=== PATIENT | male | born 1945 | race Caucasian/White ===

== ENCOUNTER 2016-11-14 12:11 | Day surgery (SDC) | payer BC ==
--- NOTE | 2016-11-12 14:04 | HP ---
ADMISSION HISTORY AND PHYSICAL: DATE OF ADMISSION: 11/14/16 ATTENDING SURGEON: Kalpesh Guerrero MD (ARUNA Diaz, dictating). CHIEF COMPLAINT: Right inguinal hernia. HISTORY OF PRESENT ILLNESS: This is a 71-year-old male who for the past 6 to 9 months has experienced intermittent discomfort in the right groin. It was only recently about 2 to 3 weeks ago that he actually noticed a bulge and presented for evaluation. He does a moderate amount of lifting to get his 60-pound dog in and out of the car, but there was no specific antecedent injury or straining. He has had 1 episode of sharp pain which occurred last evening, but resolved spontaneously. He has never had to manually reduce the hernia, it self reduces when he is recumbent. He has not had any significant GI or complaints, though he does have some preexisting BPH and occasional urgency. He has no history of outlet obstruction. He was seen in the office by Dr. Guerrero on 11/01/16, at which time the exam confirmed the presence of a reducible nontender right inguinal hernia. Dr. Guerrero discussed with him the options for repair and methods thereof. He understands the indications, risks, benefits, and alternatives and would like to proceed as scheduled with laparoscopic repair of right inguinal hernia with mesh. He has a previously scheduled appointment with Dr. Rayo for cardiology followup on 11/13/16. PAST MEDICAL HISTORY: Aortic insufficiency, status post aortic valve and root replacement in 2010 with porcine valve (no chronic anticoagulation). He is also treated for hypertension, GERD, hyperlipidemia and anxiety. He has a history of BPH. He is followed by Dr. Blackwell. He also has a past history of nephrolithiasis and apparently has glucose intolerance, though requires no current treatment. He had an episode of what was felt to be ischemic colitis in 2014 with no recurrence. His only previous surgery is aortic valve and root replacement in 2010 (porcine). CURRENT MEDICATIONS: 1. Hydrochlorothiazide 12.5 mg once daily. 2. Metoprolol succinate extended release 25 mg one-half tablet daily. 3. Escitalopram 10 mg daily. 4. Aspirin 81 mg daily (the patient instructed to hold between now and surgery , his last dose being 11/11/16). 5. Lisinopril 20 mg daily. 6. Pravastatin 40 mg one-half tablet q.h.s. 7. Omeprazole 20 mg daily. 8. Amoxicillin 2 g prior to specific procedures for bacterial endocarditis prophylaxis. DRUG ALLERGIES: NIASPAN (the patient does not recall reaction). FAMILY HISTORY: Noncontributory for anesthesia problems, bleeding or clotting disorders. SOCIAL HISTORY: The patient is and lives with his fiancee. 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 He is fairly active in terms of exercise and walking and has good tolerance. He denies use of tobacco. He drinks on average about 2 drinks per week. He denies other drug use. REVIEW OF SYSTEMS: General: No recent constitutional symptoms or acute illnesses. He has had net weight loss of approximately 15 pounds over the past year which was intentional. HEENT: No problems reported, though he thinks that he may be developing cataracts. Cardiovascular: No chest pain or palpitations. He is bradycardic at times, but asymptomatic. Respiratory: No history of asthma, chronic cough or shortness of breath. GI: He is treated for GERD and has a history of Benjamin's esophagus. His last EGD was in 2014 and apparently stable. He believes his last colonoscopy was within approximately 5 years. No recent problems reported. : He is followed by Dr. Blackwell for BPH. He has a past history of nephrolithiasis. No other recent problems. Endocrine: No diabetes or thyroid dysfunction. He does have glucose intolerance with an apparently mildly elevated A1c in the past. He is unsure about recent measurements. Neuro/Psych: No problems reported other than anxiety. Hematological/Oncological: No history of bleeding disorders or personal history of malignancy. PHYSICAL EXAMINATION GENERAL: Well-nourished, well-developed male in no acute distress. VITAL SIGNS: Height 5.9 inches, weight 187 pounds. Blood pressure 118/78, pulse 48. HEENT: Pupils equal, round, and reactive. EOMs are intact. No conjunctival pallor. Oropharynx: Teeth in good repair. No intraoral lesions. NECK: No lymphadenopathy, thyromegaly or masses. LUNGS: Clear to auscultation. No rales or wheezes. HEART: Bradycardic, but regular. No murmur appreciated. BREASTS: Not reexamined. ABDOMEN: Soft, nontender to palpation. No palpable masses or organomegaly per Dr. Guerrero's exam. Right inguinal hernia, reducible. No hernia palpated on the left. Testes otherwise normal. RECTAL: Not done (done within the past by Dr. Blackwell). BACK: No spinous process or CVA tenderness. EXTREMITIES: No edema. NEUROLOGICAL: Grossly intact. SKIN: Warm and dry. No suspicious rashes or lesions are noted, though a complete skin exam was not performed. He does have a skin tag-like lesion on the left lateral neck which appears benign. IMPRESSION: Right inguinal hernia. PLAN: Laparoscopic repair right inguinal hernia with mesh. ARUNA SNOW CC: Chen Ambrocio MD; Nisreen Rayo MD; Dwaine Blackwell MD * [id number]/[facility] #: [id number] MTDD
[~2016-11-14 12:11] MED LIST: Dexamethasone IV* 4 MG/ML 1 ML (4 MG) IV SLOW PU ONE; Famotidine IV* 10 MG/ML 2 ML (20 mg) IV ONE
[2016-11-14] MEDS ORDERED: Dexamethasone IV* 4 MG/ML 1 ML (4 MG) ONE (12:22)
[2016-11-14] MEDS ORDERED: ceFAZolin 2 GM PREMIX(*) 2 GM/50 ML BAG IVPB ONE (12:22)
[2016-11-14] MEDS ORDERED: Famotidine IV* 10 MG/ML 2 ML (20 mg) ONE (12:22)
[2016-11-14] MEDS ORDERED: Buffered Lidocaine 0.9% SYRIN* 5 ML/SYR SYRINGE ONE (12:22)
[2016-11-14] MEDS ORDERED: Bupivacaine 0.25% EPI 200,000* 30 ML SDV ONE (14:23)
[2016-11-14] MEDS ORDERED: Succinylcholine* 20 MG/ML 10 ML VIAL ONE (14:35)
[2016-11-14] MEDS ORDERED: fentaNYL* 50 MCG/ML 2 ML VIAL (100 MCG VIAL) ONE ×3 (14:39→16:45)
[2016-11-14] MEDS ORDERED: Lidocaine 2% PF * 5 ML VIAL ONE (14:39)
[2016-11-14] MEDS ORDERED: Propofol* 10 MG/ML 20 ML BTL IV PUSH ONE (14:39)
[2016-11-14] MEDS ORDERED: Ondansetron INJ* 2 MG/ML VIAL ONE (15:10)
[2016-11-14] MEDS ORDERED: oxyCODONE/Acetamin 5/325 MG* TAB PO PRN (15:16)
[2016-11-14] MEDS ORDERED: Ketorolac INJ* 30 MG/ML 1 ML VIAL IV PRN (15:16)
[2016-11-14] MEDS ORDERED: PROCHLORPERAZINE INJ 5 MG/ML 2 ML VIAL IV PRN (15:16)
[2016-11-14] MEDS ORDERED: fentaNYL* 50 MCG/ML 2 ML VIAL (100 MCG VIAL) IV PRN (15:16)
[2016-11-14] MEDS ORDERED: HYDROcodone/ACETAMIN 5-325 MG* 1 TAB PO PRN (15:16)
[2016-11-14] MEDS ORDERED: hydrALAZINE IV* 20 MG/ML VIAL ONE (15:41)
--- NOTE | 2016-11-14 16:14 | SURGPN ---
Brief Operative Note - Surgery Procedures: Procedures Pre-OP Diagnoses: Right inguinal hernia Post-op Diagnosis: same Procedure: Laparoscopic right inguinal hernia repair with mesh Surgeon: Cesar Vinest: Abbie Ruffin: SELENE Colby EBL: minimal IVF: crystalloid Specimen: none Drains: none
[2016-11-14] MEDS ORDERED: PROCHLORPERAZINE INJ 5 MG/ML 2 ML VIAL ONE (16:39)
[2016-11-14] MEDS ORDERED: Ketorolac INJ* 30 MG/ML 1 ML VIAL ONE (16:39)
[2016-11-14] MEDS ORDERED: HYDROcodone/ACETAMIN 5-325 MG* 1 TAB ONE (16:45)
[2016-11-14 17:54] VITALS: BP 107/64
--- NOTE | 2016-11-14 23:20 | OP ---
CC: Chen Ambrocio MD; Nisreen Rayo MD * DATE OF OPERATION: 11/14/16 - [facility] DATE OF : 43 SURGEON: Kalpesh Guerrero MD MOBILE PHLEBOTOMIST: ARUNA Diaz ANESTHESIOLOGIST: Dr. Colby. ANESTHESIA: General. PRE-OP DIAGNOSIS: Right inguinal hernia. POST-OP DIAGNOSIS: Right inguinal hernia. OPERATIVE PROCEDURE: Laparoscopic right inguinal hernia repair with mesh. ESTIMATED BLOOD LOSS: Minimal. FLUIDS: Crystalloid fluid given. SPECIMENS: None. DRAINS: None. COUNTS: Lap pad count and instrument count correct at the end of the procedure. DESCRIPTION OF PROCEDURE: The patient was identified in the preoperative area and marked accordingly, brought to the operating room, placed on the operating room table in a supine position. Preoperative antibiotics were given. Sequential devices were placed on bilateral lower extremities. General anesthesia was induced. The patient's right groin and lower abdomen were clipped of hair and then prepped and draped in a standard surgical fashion. A time-out was performed. An infraumbilical incision was made. This was deepened down to the anterior fascia on the right, which was incised and the rectus pillar retracted laterally and entry to the preperitoneal plane was made. Finger dissection was then utilized and a 12- mm blunt port was then inserted. A laparoscope was inserted through this and there was no evidence of violation of peritoneum. ___ __ was used for blunt dissection to free up this preperitoneal space and two 5 mm trocars were then placed in the lower midline. Attention was then turned towards the pubic symphysis. The loose areolar tissue was cleared off at this site and Abner's ligament was identified both on the left and right. There was no evidence of a direct hernia. The epigastric vessels on the right were maintained anteriorly and dissection was then carried out into a Bogros space laterally. Next, a hernia sac was identified. This was retracted hand over hand from the inguinal canal. This proved somewhat difficult. We did cause a tear in the hernia sac on more than one occasion. The large sac was ultimately reduced in its entirety. Review of the spermatic structures showed that they were intact without injury to the vas or any significant bleeding. Hemostasis was excellent. The sac was then twisted and a 2-0 Polysorb Endoloop was then looped around this and cinched down. This was right at the site of the first tear opening in the peritoneum. Additional portion of the peritoneum was still exposed and we used a 5 mm clip carburetor mechanic to bring this together. We identified the vas as well as the vasculature. A lipoma of the cord had also been reduced gently and next a Bard medium 3D max mesh was utilized. It was placed into the preperitoneal plane and tacked to Abner's ligament on the right and also laterally utilizing, pulling the sac up into this tack. The preperitoneal plane was then allowed to collapse. Mesh remained appropriately intact without wrinkling or tension and trocars were removed. Attention was then turned towards the umbilicus. A Veress needle was inserted into the abdomen and pneumoperitoneum was allowed to escape. I did not feel we took enough out so the posterior fascia was incised and the peritoneal cavity was allowed to fully evacuate. We then reapproximated the posterior fascia with 2-0 Polysorb suture and the anterior fascia was reapproximated with an 0 Polysorb suture in a [id number] fashion. The wounds were irrigated and skin edges were reapproximated with 4-0 Monocryl subcuticular sutures. Steri- Strips and sterile dressing were applied. The patient tolerated the procedure well. [id number]/[facility] #: [id number] FRED
== END 2016-11-14 18:12 | disposition home or self-care (01) ==
LOC: OR 12:11
PROVIDERS: ATTEND Surgery
DX: K40.90 Unilateral inguinal hernia, without obstruction or gangrene, not specified as recurrent (principal); D17.6 Benign lipomatous neoplasm of spermatic cord; Z88.8 Allergy status to other drugs, medicaments and biological substances
CPT/HCPCS: C1776; C1781; J0330; J0360; J0690; J0780; J1100; J1885; J2405; J2704; J3010

== ENCOUNTER 2018-05-17 14:25 | Emergency (ER) | payer BC ==
--- OUTSIDE RECORDS SUMMARY | 2018-05-17 14:33 | XMS REPORT | Continuity of Care Document ---
:1945 External Reference #:[id number] Author Name Jyoti Vasquez Care Team Providers Name Role Phone Chen Ambrocio MD Primary Care Physician Unavailable Payers Type Date Identification Numbers Payment Provider Subscriber Policy Number: [id number] [facility] Gerhard Lew PayID: [id number] [address] [place] [address] Advance Directives Type Date Description Status Comment Other Directive 06/13/2017 Health Care Proxy Current and Verified Problems Date Description Provider Status Onset: 01/29/2017 Aneurysm of thoracic aorta Nisreen Rayo M.D. Active Onset: 01/29/2017 Heart valve replacement Nisreen Rayo M.D. Active Onset: 04/12/2017 Sinus node dysfunction Nisreen Rayo M.D. Active Onset: 04/12/2017 Paroxysmal supraventricular Nisreen Rayo M.D. Active tachycardia Onset: 09/07/2017 Diabetes mellitus Chen Ambrocio M.D. Active Onset: 05/01/2010 Hyperlipidemia Chen Ambrocio M.D. Active Onset: 05/01/2010 Gastroesophageal reflux disease Chen Ambrocio M.D. Active Onset: 07/07/2010 Aortic valve disorder Chen Ambrocio M.D. Active Onset: 09/22/2013 Benign essential hypertension Nisreen Rayo M.D. Active Onset: 09/06/2014 Essential hypertension Nisreen Rayo M.D. Active Onset: 09/06/2014 Conduction disorder of the heart Nisreen Rayo M.D. Active Onset: 01/29/2017 Congenital insufficiency of aortic Nisreen Rayo M.D. Active valve Onset: 12/05/2017 Premature beats Nisreen Rayo M.D. 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 @ [employer] Tobacco Use Start: Unknown Never Smoked Cigarettes ETOH Use Beer or Wine 1 glass 4-5 times per week Tobacco Use Start: Unknown Patient has never smoked Recreational Drug Use Denies Drug Use Smoking Status Reviewed: 05/14/18 Patient has never smoked Exercise Type/Frequency Exercises sporadically Allergies, Adverse Reactions, Alerts Date Description Reaction Status Severity Comments 10/20/2009 Niaspan reddness Active Severe Medications Medication Date Status Form Strength Qnty SIG Indications Ordering Provider Cyclobenzaprine 05/14 Hx Tablets 5mg 30tab 1 by M54.2 Yaneli HCL s mouth at Varn, N.P. - bedtime 05/28 as needed /2017 for back pain Pravastatin 10/01 Active Tablets 40mg 45tab take 06/11 Nisreen Sodium s tablet by Preri, mouth at M.D. bedtime Hydrochlorothiazi 10/09 Active Tablets 12.5mg 90tab Take One I10 Chen de s Tablet By Cotton, Mouth M.D. Every Morning Escitalopram 08/22 Active Tablets 10mg 90tab Take One Chen s Tablet By Cotton, Mouth M.D. Every Day Amoxicillin 05/18 Active Tablets 500mg 12tab 4 tablets Chen /2013 s one hour Cotton, prior to M.D. procedure s Lisinopril 05/18 Active Tablets 20mg 90tab Take One I10 Chen /2013 s Tablet By Cotton, Mouth M.D. Once Daily Omeprazole 10/[address] 20mg 90cap Take 1 Chen /2010 s Capsule Cotton, By Mouth M.D. Every Day Aspirin [address] 81mg 1 by Unknown /0000 mouth every day Calcium 1200 00/00 Active 1 by Unknown /0000 mouth every day Multi For Him Active Tablets one by Unknown /0000 mouth daily Preservision Active Capsules i tab by Unknown Areds /0000 mouth once a day Amoxicillin/Clavu 07/10 Hx Tablets 875-125mg 14tab take 1 J01.90 Zsofia lanate Potassium s tab by Talib, - mouth CAP BLOCKER 11/18 twice a day for 7 days Pravastatin 05/16 Hx Tablets 30tab 1 by Chen Sodium s mouth Cotton, - every day M.D. 10/01 Hydrocodone-Aceta 11/12 Hx Tablets 5-325mg 15tab 1 or 2 Yeni Justice minophen s tablets MD Aric - by mouth 12/08 every - hours as needed for moderatel y severe pain Metoprolol 08/22 Hx Tablets ER 25mg 45tab 1/2 by I10 Chen Succinate ER 24HR s mouth Cotton, - every day M.D. 03/08 Aspirin 08/18 Hx Tablets 325mg 1/2 by mouth Ordering - every day Provider 01/16 Tobramycin 06/29 Hx Solution 0.3% 5ml 1 drop in H10.9 each eye Varn, N.P. - every 07/06 4hours 7 days Cheratussin ac 06/29 Hx Syrup 100-10mg/ 120ml 2 H10.9 5ML teaspoons Varn, N.P. - by mouth 07/13 every hours as needed Amoxicillin/Clavu 06/27 Hx Tablets 875-125mg 20tab one Yaneli lanate Potassium s tablet by Varn, N.P. - mouth 07/07 twice daily for 10 days Benzonatate 06/24 Hx Capsules 200mg 30cap one by J06.9 s mouth Varn, N.P. - three 06/29 times daily as needed for cough Metaxalone 01/31 Hx Tablets 800mg 40tab take 1 Chen /2015 s tablet 3 Cotton, - times a M.D. 06/24 day as needed Doxycycline 09/07 Hx Capsules 100mg 14cap one [place] Hyclate /2015 s tablet Lionel, DIRECTOR OF [employer] - twice 09/15 daily for 7 days. Ciprofloxacin HCL 08/31 Hx Tablets 500mg 14tab take one 680.9 [place] s tablet Lionel, DIRECT[employer] OF [employer] - twice a 09/07 day for days Cephalexin 08/24 Hx Tablets 500mg 20tab take one 680.9 [place] s tablet Lionel, DIRECT[employer] - every 6 08/30 hours 5 days Meclizine HCL 02/15 Hx Tablets 12.5mg 40tab take one 386.11 s to two Cotton, - tablets M.D. 06/10 by mouth three times a day as needed for vertigo Cephalexin 11/23 Hx Capsules 500mg 21cap 1 by 686.8 s mouth Varn, N.P. - three 11/30 times day for 7 days Doxycycline 10/17 Hx Capsules 100mg 2caps take 2 tablets Cotton, - one time M.D. 10/19 Lisinopril 07/20 Hx Tablets 10mg 270ta Take 1 & bs 1/2 Cotton, - Tablet By M.D. 07/20 Mouth Twice A Day Pravastatin 12/15 Hx Tablets 40mg 45tab 1/2 tab Nisreen s by mouth [place], - every day M.D. 01/29 at bedtime Skelaxin 07/10 Hx Tablets 800mg 30tab 1 every 8 724.5 s hours as Varn, N.P. - needed 07/24 Lisinopril 06/19 Hx Tablets 10mg 270ta 2 po bid bs Cotton, - M.D. 05/18 Azithromycin 04/22 Hx Tablets 250mg 6tabs two tabs day one, Varn, N.P. - one daily 05/02 till Aspirin 03/25 Hx Tablets 81mg 1/2 by mouth Cotton, - once M.D. 07/09 Lisinopril 01/14 Hx Tablets 5mg 180ta Take One bs Tablet By Cotton, - Mouth M.D. 06/19 Twice Daily Lisinopril 06/22 Hx Tablets 2.5mg 90tab Take One Chen s Tablet By Cristóbal, - Mouth M.D. 01/14 Once Daily Azithromycin 05/08 Hx Tablets 250mg 6tabs two tabs 461.9 day one, Cristóbal, - one daily M.D. 05/18 till Fluticasone 05/08 Hx Suspension 50mcg/Act 16gm 1 spray J01.90 Yaneli Propionate each Varn, N.P. - nostril 07/08 daily /2015 Lisinopril 12/06 Hx Tablets 5mg 90tab 1 po qd Chen s Cristóbal, - M.D. 06/22 Tramadol HCL 11/09 Hx Tablets 50mg 40tab 1-2 723.1 s tablets Cristóbal, - every 6 M.D. 11/09 hours needed Meloxicam 11/09 Hx Tablets 7.5mg 45tab Take One 723.1 s To Two Cristóbal, - Tablets M.D. 06/05 By Mouth Once Daily Pravastatin 09/06 Hx Tablets 20mg 90tab 1 tablet Chen Sodium s once Cristóbal, - daily at M.D. 12/15 bedtime Warfarin Sodium 09/05 Hx Tablets 2mg 100ta one and bs one half Cristóbal, - pills by M.D. 06/05 mouth once daily or as directed Docusate Sodium 09/05 Hx Liquid 50mg/5ML Cristóbal, - M.D. 09/05 Colace 09/05 Hx Capsules 50mg 1 pill two times Cristóbal, - daily M.D. 06/05 Furosemide 09/05 Hx Tablets 40mg 90tab one s tablet by Cristóbal, - mouth M.D. 12/06 once a day Pravastatin 09/05 Hx Tablets 40mg 30tab 1 tablet Chen Sodium s daily at Cristóbal, - bedtime M.D. 09/06 Metoprolol 09/05 Hx Tablets 25mg 180ta take one Nisreen Tartrate bs tablet by Perri, - mouth M.D. 08/02 twice a day Klor-Con 09/01 Hx Packet 20Meq 90uni 1 by ts mouth Cotton, - once M.D. 06/05 every Acetaminophen/Hyd 09/01 Hx Tablets 5-500mg 30tab 2 tablets s by mouth Cotton, - every 6 M.D. 10/16 hours needed Lisinopril 09/01 Hx Tablets 2.5mg 90tab 1 by s mouth Cotton, - once M.D. 12/06 Furosemide 09/01 Hx Solution 40mg/4ML 1 tablet daily Cotton, - M.D. 09/05 Amiodarone HCL 09/01 Hx Tablets 200mg 60tab 1 by s mouth 2 Cotton, - times M.D. 11/09 Metoprolol 09/01 Hx Tablets ER 25mg 60tab 1 tablet s by mouth Cotton, - twice a M.D. Docusate Sodium 09/01 Hx Capsules 100mg 60cap 1 capsule s twice a Cotton, - day M.D. 09/05 Warfarin Sodium 09/01 Hx Tablets 4mg 30tab 1 daily s except 1 Cotton, - 1/2 twice M.D. 09/05 a Hydrochlorothiazi 07/07 Hx Capsules 12.5mg 30cap 1 tablet s by mouth Cotton, - once M.D. 09/01 Nasonex 10/20 Hx Suspension 50mcg/Act 2 sprays each Cotton, - nostril M.D. 09/01 Tricor 10/20 Hx Tabs 145mg 30tab Take One s Tablet By Cotton, - Mouth M.D. 09/05 Lexapro 10/20 Hx Tablets 20mg 15tab Take 1/2 I10 s Tablet By Cotton, - Mouth M.D. 08/22 Immunizations CPT Code Status Date Vaccine Lot # [id number] Given 06/13/2017 Tetanus And Diptheria (Td) For Adult Use [id number] Preservative Free 92677 Given 03/02/2017 Influenza Virus Vaccine, Quadrivalent, Split, Preservative Free [id number] Given 04/03/2016 Fluzone Vaccine 20630 Given 09/20/2014 Pneumococcal Conjugate Vaccine 13 Valent For [id number] Intramuscular Use 70114 Given 04/15/2014 Flu Vaccine Split Virus Preservative Free For [id number] Indiv 3Yr Older 45245 Given 05/18/2013 Flu Vaccine Split Virus Preservative Free For [id number] Indiv 3Yr Older Q2037 Given 03/25/2012 Fluvirin Im 3Yrs And Older [id number] 24548 Given 03/06/2011 Influenza Virus 3Yrs & Over [id number] 45521 Given 05/01/2010 Pneumonia Vaccine 76964 Given 07/15/2009 Influenza Virus Vaccine, Pandemic Formulation 58386 Given 07/15/2009 Administration Swine Flu Shot 53233 Given 10/15/2008 Zoster (Zostavax) 40684 Given 08/08/2006 Tdap - Tetanus/Diptheria/Acellular Pertussis Vital Signs Date Vital Result Comment 05/14/2018 3:57pm Height 69 inches 5'9" Weight 201.00 lb Heart Rate 59 /min BP Systolic 153 mmHg BP Diastolic 84 mmHg Body Temperature 97.0 F Pain Level 5 O2 % BldC Oximetry 97 % BMI (Body Mass Index) 29.7 kg/m2 02/04/2018 10:11am Height 69 inches 5'9" Weight 198.00 lb Heart Rate 56 /min BP Systolic Sitting 135 mmHg BP Diastolic Sitting 75 mmHg O2 % BldC Oximetry 96 % BMI (Body Mass Index) 29.2 kg/m2 12/05/2017 1:10pm Height 69 inches 5'9" Weight 194.00 lb Heart Rate 64 /min BP Systolic Sitting 130 mmHg Lue reg cuff BP Diastolic Sitting 86 mmHg Lue reg cuff BP Systolic Standing 128 mmHg Lue BP Diastolic Standing 94 mmHg Lue Respiratory Rate 16 /min BMI (Body Mass Index) 28.6 kg/m2 Ejection Fraction 55-60% 09/16/15 12/04/2017 4:15pm Height 69 inches 5'9" Weight 190.00 lb Heart Rate 72 /min BP Systolic Sitting 118 mmHg BP Diastolic Sitting 70 mmHg Respiratory Rate 18 /min Pain Level 0 BMI (Body Mass Index) 28.1 kg/m2 07/10/2017 10:12am Height 69 inches 5'9" Weight 189.00 lb Heart Rate 61 /min BP Systolic Sitting 128 mmHg BP Diastolic Sitting 78 mmHg Respiratory Rate 16 /min Body Temperature 97.9 F O2 % BldC Oximetry 97 % BMI (Body Mass Index) 27.9 kg/m2 06/13/2017 2:55pm Height 69 inches 5'9" Weight 185.00 lb Heart Rate 61 /min BP Systolic 110 mmHg BP Diastolic 60 mmHg Body Temperature 98.5 F O2 % BldC Oximetry 97 % BMI (Body Mass Index) 27.3 kg/m2 05/16/2017 2:43pm Weight 188.50 lb Heart Rate 71 /min BP Systolic 120 mmHg BP Diastolic 80 mmHg O2 % BldC Oximetry 97 % 04/12/2017 11:34am BP Systolic 141 mmHg HR 60 HM BP mon Omron Manual sit BP Diastolic 77 mmHg HR 60 HM BP mon Omron Manual sit BP Systolic Sitting 140 mmHg HR 60 HM BP Premier value Manual sit BP Diastolic Sitting 87 mmHg HR 60 HM BP Premier value Manual sit BP Systolic Standing 125 mmHg Shuttle Hand 130/88 Shuttle Hand BP Diastolic Standing 87 mmHg Shuttle Hand 130/88 Shuttle Hand 04/12/2017 10:32am Height 69 inches 5'9" Weight 192.00 lb without shoes Heart Rate 66 /min BP Systolic Sitting 110 mmHg Lue reg cuff BP Diastolic Sitting 60 mmHg Lue reg cuff Respiratory Rate 16 /min BMI (Body Mass Index) 28.4 kg/m2 Ejection Fraction 55-60% date 09/16/2015 ECHO 01/29/2017 3:49pm Height 69 inches 5'9" Weight 188.00 lb Heart Rate 72 /min BP Systolic Sitting 104 mmHg Rue reg cuff BP Diastolic Sitting 70 mmHg Rue reg cuff BP Systolic Standing 116 mmHg Rue BP Diastolic Standing 86 mmHg Rue Respiratory Rate 16 /min BMI (Body Mass Index) 27.8 kg/m2 Ejection Fraction 55-60% 09/16/15 12/06/2016 9:43am Heart Rate 64 /min BP Systolic 130 mmHg BP Diastolic 74 mmHg Respiratory Rate 16 /min Body Temperature 97.0 F 11/21/2016 9:41am Heart Rate 62 /min Respiratory Rate 16 /min Body Temperature 96.5 F 11/12/2016 10:15am Height 69 inches 5'9" Weight 187.00 lb Heart Rate 48 /min BP Systolic Sitting 118 mmHg BP Diastolic Sitting 78 mmHg Respiratory Rate 16 /min Body Temperature 97.9 F BMI (Body Mass Index) 27.6 kg/m2 11/01/2016 12:54pm Height 68.5 inches 5'8.50" Weight 187.00 lb Heart Rate 64 /min BP Systolic 116 mmHg BP Diastolic 64 mmHg Respiratory Rate 16 /min Body Temperature 96.8 F BMI (Body Mass Index) 28.0 kg/m2 11/01/2016 10:09am Height 68.5 inches 5'8.50" Weight 187.00 lb Heart Rate 56 /min BP Systolic 110 mmHg BP Diastolic 79 mmHg Respiratory Rate 15 /min Body Temperature 97.1 F Pain Level 0 BMI (Body Mass Index) 28.0 kg/m2 10/31/2016 9:08am Weight 187.00 lb Heart Rate 48 /min BP Systolic Sitting 116 mmHg BP Diastolic Sitting 72 mmHg O2 % BldC Oximetry 98 % 10/09/2016 1:53pm Weight 188.00 lb Heart Rate 69 /min BP Systolic 134 mmHg BP Diastolic 80 mmHg BP Systolic Sitting 136 mmHg BP Diastolic Sitting 70 mmHg Body Temperature 98.0 F 09/14/2016 2:26pm Height 68.50 inches 5'8.50" Weight 195.00 lb Heart Rate 51 /min BP Systolic 154 mmHg BP Diastolic 85 mmHg Respiratory Rate 16 /min Pain Level 0 BMI (Body Mass Index) 29.2 kg/m2 10/17/2015 1:22pm Height 68.50 inches 5'8.50" Weight 203.00 lb Heart Rate 58 /min BP Systolic Sitting 142 mmHg BP Diastolic Sitting 82 mmHg Respiratory Rate 15 /min Body Temperature 98.2 F O2 % BldC Oximetry 98 % BMI (Body Mass Index) 30.4 kg/m2 10/13/2015 1:44pm Height 68.50 inches 5'8.50" Weight 201.00 lb without shoes Heart Rate 66 /min BP Systolic Sitting 120 mmHg La reg cuff BP Diastolic Sitting 90 mmHg La reg cuff BP Systolic Standing 120 mmHg La reg cuff BP Diastolic Standing 82 mmHg La reg cuff Respiratory Rate 17 /min BMI (Body Mass Index) 30.1 kg/m2 08/23/2015 12:05pm Weight 198.00 lb Heart Rate 86 /min BP Systolic Sitting 134 mmHg L: 144/84, R: 140/90 BP Diastolic Sitting 80 mmHg L: 144/84, R: 140/90 Respiratory Rate 15 /min Body Temperature 98.1 F O2 % BldC Oximetry 98 % 08/17/2015 2:41pm Weight 204.00 lb Heart Rate 62 /min BP Systolic Sitting 156 mmHg BP Diastolic Sitting 92 mmHg Body Temperature 97.7 F O2 % BldC Oximetry 98 % 06/29/2015 1:30pm Height 69 inches 5'9" Weight 205.00 lb Heart Rate 54 /min BP Systolic Sitting 128 mmHg BP Diastolic Sitting 82 mmHg Respiratory Rate 15 /min Body Temperature 98.5 F O2 % BldC Oximetry 98 % BMI (Body Mass Index) 30.3 kg/m2 06/24/2015 10:43am Height 69 inches 5'9" Weight 206.00 lb Heart Rate 82 /min BP Systolic Sitting 128 mmHg BP Diastolic Sitting 84 mmHg Respiratory Rate 15 /min Body Temperature 98.4 F O2 % BldC Oximetry 98 % BMI (Body Mass Index) 30.4 kg/m2 10/18/2014 2:57pm Height 69 inches 5'9" Weight 200.00 lb w/o shoes Heart Rate 70 /min reg BP Systolic Sitting 118 mmHg Ra, reg cuff BP Diastolic Sitting 80 mmHg Ra, reg cuff BP Systolic Standing 116 mmHg Ra BP Diastolic Standing 80 mmHg Ra Respiratory Rate 16 /min BMI (Body Mass Index) 29.5 kg/m2 Ejection Fraction 65-70% 08/18/14 09/20/2014 1:41pm Height 69 inches 5'9" Weight 198.50 lb Heart Rate 64 /min BP Systolic Sitting 136 mmHg BP Diastolic Sitting 82 mmHg Body Temperature 98.1 F O2 % BldC Oximetry 95 % BMI (Body Mass Index) 29.3 kg/m2 09/06/2014 10:33am Height 69 inches 5'9" Weight 198.00 lb w/o shoes Heart Rate 70 /min reg BP Systolic Sitting 136 mmHg Ra, reg cuff BP Diastolic Sitting 80 mmHg Ra, reg cuff BP Systolic Standing 140 mmHg Ra BP Diastolic Standing 80 mmHg Ra Respiratory Rate 16 /min BMI (Body Mass Index) 29.2 kg/m2 09/02/2014 3:21pm Height 69 inches 5'9" Weight 197.00 lb Heart Rate 65 /min BP Systolic 117 mmHg BP Diastolic 74 mmHg Body Temperature 97.9 F BMI (Body Mass Index) 29.1 kg/m2 08/31/2014 3:59pm Weight 197.00 lb Heart Rate 65 /min BP Systolic Sitting 142 mmHg BP Diastolic Sitting 76 mmHg Body Temperature 97.5 F 08/24/2014 1:17pm Weight 196.25 lb Heart Rate 67 /min BP Systolic Sitting 100 mmHg BP Diastolic Sitting 71 mmHg 08/06/2014 2:05pm Weight 200.50 lb Heart Rate 59 /min BP Systolic Sitting 117 mmHg BP Diastolic Sitting 75 mmHg 02/15/2014 3:37pm Height 69.25 inches 5'9.25" Weight 202.00 lb Heart Rate 57 /min BP Systolic Sitting 130 mmHg BP Diastolic Sitting 86 mmHg Body Temperature 98.6 F BMI (Body Mass Index) 29.6 kg/m2 11/23/2013 3:12pm Weight 205.75 lb Heart Rate 64 /min BP Systolic Sitting 133 mmHg BP Diastolic Sitting 72 mmHg 09/22/2013 9:57am Height 69 inches 5'9" Weight 202.31 lb without shoes Heart Rate 50 /min BP Systolic Sitting 120 mmHg LA reg cuff BP Diastolic Sitting 82 mmHg LA reg cuff BP Systolic Standing 156 mmHg LA reg cuff BP Diastolic Standing 90 mmHg LA reg cuff BP Systolic Recheck 140 mmHg LA p sit for 5mins db BP Diastolic Recheck 100 mmHg LA p sit for 5mins db Respiratory Rate 16 /min BMI (Body Mass Index) 29.9 kg/m2 07/20/2013 1:20pm Height 69.5 inches 5'9.50" Weight 198.50 lb Heart Rate 70 /min BP Systolic Sitting 118 mmHg BP Diastolic Sitting 80 mmHg BMI (Body Mass Index) 28.9 kg/m2 05/18/2013 1:20pm Height 69.5 inches 5'9.50" Weight 196.00 lb Heart Rate 62 /min BP Systolic Sitting 140 mmHg BP Diastolic Sitting 82 mmHg BMI (Body Mass Index) 28.5 kg/m2 08/01/2012 2:43pm Height 69.5 inches 5'9.50" Weight 202.00 lb Heart Rate 60 /min BP Systolic Sitting 140 mmHg BP Diastolic Sitting 86 mmHg BMI (Body Mass Index) 29.4 kg/m2 07/10/2012 9:49am Height 69.5 inches 5'9.50" Weight 199.00 lb Heart Rate 76 /min BP Systolic Sitting 142 mmHg BP Diastolic Sitting 84 mmHg BMI (Body Mass Index) 29.0 kg/m2 04/25/2012 2:57pm Weight 207.00 lb Heart Rate 70 /min BP Systolic Sitting 140 mmHg BP Diastolic Sitting 80 mmHg 04/14/2012 3:29pm Height 69.5 inches 5'9.50" Weight 200.00 lb Heart Rate 88 /min BP Systolic Sitting 122 mmHg BP Diastolic Sitting 68 mmHg Body Temperature 98.5 F BMI (Body Mass Index) 29.1 kg/m2 03/25/2012 4:14pm Height 69.5 inches 5'9.50" Weight 202.00 lb Heart Rate 56 /min BP Systolic Sitting 162 mmHg BP Diastolic Sitting 84 mmHg BMI (Body Mass Index) 29.4 kg/m2 06/05/2011 3:43pm Height 69.5 inches 5'9.50" Weight 197.00 lb Heart Rate 72 /min BP Systolic Sitting 158 mmHg BP Diastolic Sitting 80 mmHg BMI (Body Mass Index) 28.7 kg/m2 05/08/2011 9:38am Height 68.5 inches 5'8.50" Weight 196.75 lb Heart Rate 64 /min BP Systolic Sitting 134 mmHg l BP Diastolic Sitting 70 mmHg l Body Temperature 98.9 F BMI (Body Mass Index) 29.5 kg/m2 03/06/2011 3:45pm Height 68.5 inches 5'8.50" Weight 190.00 lb Heart Rate 62 /min BP Systolic Sitting 112 mmHg BP Diastolic Sitting 60 mmHg BMI (Body Mass Index) 28.5 kg/m2 11/09/2010 12:59pm Height 68.5 inches 5'8.50" Weight 182.00 lb Heart Rate 50 /min irregular BP Systolic Sitting 100 mmHg BP Diastolic Sitting 60 mmHg BMI (Body Mass Index) 27.3 kg/m2 10/13/2010 9:01am Height 68.5 inches 5'8.50" Weight 177.00 lb Heart Rate 60 /min BP Systolic Sitting 100 mmHg BP Diastolic Sitting 62 mmHg Body Temperature 97.7 F BMI (Body Mass Index) 26.5 kg/m2 09/01/2010 2:07pm Weight 188.00 lb Heart Rate 60 /min BP Systolic 110 mmHg BP Diastolic 60 mmHg 05/01/2010 2:40pm Height 69.5 inches 5'9.50" Weight 202.50 lb Heart Rate 60 /min BP Systolic 130 mmHg BP Diastolic 80 mmHg BMI (Body Mass Index) 29.5 kg/m2 Results Test Date Facility Test Result H/L Range Note Laboratory test 02/17/2018 [facility] PSA Diagnostic 5.251 ng/ mL High 0-4.[address] [place] [address] [phone] Urine Microalbumin 01/10/2018 [facility] Ur Microalbumin < 15.0 Random 101 (mg/L) [place] [address] [phone] Urine Creatinine 134.34 mg/dL Urine Microalbumin/Creatinine TNP <31 2 Laboratory test 01/10/2018 [facility] Hemoglobin A1c 6.4 % High 4.0-5.[address] (Glyco HGB) [place] [address] [phone] Laboratory test 01/10/2018 [facility] PSA Diagnostic 5.883 High 0-4.0 4 finding 101 ng/[place] [address] [phone] Blood Urea Nitrogen BUN 27 mg/dL High 6-24 Creatinine 01/10/2018 [facility] Creatinine 0.73 mg/dL N 0.67- 1.[address] [place] [address] [phone] Egfr Non- 105.3 >60 Egfr 127.4 >60 5 Lipid Profile 06/07/2017 [facility] Triglycerides 254 mg/dL 6 (Trig/Chol/HDL) [address] [place] [address] [phone] Cholesterol 196 mg/dL 7 HDL Cholesterol 41.2 mg/dL 8 LDL Cholesterol 104 mg/dL 9 Laboratory test 06/07/2017 [facility] Hemoglobin A1c 6.5 % High 4.0-5.[address] (Glyco HGB) [place] [address] [phone] Comp Metabolic 06/07/2017 [facility] Sodium 139 N 133-[address] mmol/[place] [address] [phone] Potassium 4.5 mmol/L N 3.5-5.0 Chloride 101 mmol/L N 101-111 Co2 Carbon Dioxide 34 mmol/L High 22-32 Anion Gap 4 mmol/L N 2-11 Glucose 149 mg/dL High 70-100 Blood Urea Nitrogen 28 mg/dL High 6-24 Creatinine 0.76 mg/dL N 0.67-1.17 BUN/Creatinine Ratio 36.8 High 8-20 Calcium 9.9 mg/dL N 8.6-10.3 Total Protein 6.5 g/dL N 6.4-8.9 Albumin 4.2 g/dL N 3.2-5.2 Globulin 2.3 g/dL N 2-4 Albumin/Globulin Ratio 1.8 N 1-3 Total Bilirubin 0.50 mg/dL N 0.2-1.0 Alkaline Phosphatase 69 U/L N 34-104 Alt 22 U/L N 7-52 Ast 17 U/L N 13-39 Egfr Non- 100.8 >60 Egfr 129.7 >60 11 Lipid Profile 04/12/2017 [facility] Triglycerides 287 mg/dL N 12 (Trig/Chol/HDL) [address] [place], [place] [id number] [phone] Cholesterol 224 mg/dL N 13 HDL Cholesterol 38.3 mg/dL N 14 LDL Cholesterol 128 mg/dL N 15 Testosterone 11/13/2016 [facility] Free 7.71 N 3.28-12.2 16 Free & Total [address] Testosterone ng/[place] [address] ng/dl [phone] Testosterone 241 ng/dL N 240-950 17 Laboratory test 11/13/2016 [facility] PSA Diagnostic 3.737 N 0 -4.0 [address] ng/[place] [address] [phone] Laboratory test 08/27/2016 [facility] PSA Diagnostic 4.860 High 0-4.0 [address] ng/[place] [address] [phone] Lipid Profile 04/03/2016 [facility] Triglycerides 100 mg/dL N 20 (Trig/Chol/HDL) [address] [place], [place] [id number] [phone] Cholesterol 154 mg/dL N 21 HDL Cholesterol 44.8 mg/dL N 22 LDL Cholesterol 89 mg/dL N 23 Laboratory test 04/03/2016 [facility] LDL Cholesterol 88 mg/dL N [address] Direct [place], [place] [address] [phone] Comp Metabolic 04/03/2016 [facility] Sodium 139 mmol/L N 133- [address] [place] [address] [phone] Potassium 4.6 mmol/L N 3.5-5.0 Chloride 103 mmol/L N 101-111 Co2 Carbon Dioxide 34 mmol/L High 22-32 Anion Gap 2 mmol/L N 2-11 Glucose 124 mg/dL High 70-100 Blood Urea Nitrogen 16 mg/dL N 6-24 Creatinine 0.80 mg/dL N 0.67-1.17 BUN/Creatinine Ratio 20.0 N 8-20 Calcium 9.7 mg/dL N 8.6-10.3 Total Protein 6.4 g/dL N 6.4-8.9 Albumin 4.1 g/dL N 3.2-5.2 Globulin 2.3 g/dL N 2-4 Albumin/Globulin Ratio 1.8 N 1-3 Total Bilirubin 0.60 mg/dL N 0.2-1.0 Alkaline Phosphatase 71 U/L N 34-104 Alt 52 U/L N 7-52 Ast 28 U/L N 13-39 Egfr Non- 95.3 N >60 Egfr 122.6 N >60 25 Laboratory test 04/03/2016 [facility] PSA Diagnostic 4.412 High 0-4.000 [address] ng/[place] [address] [phone] Hemoglobin A1c (Glyco HGB) 6.2 % High Less than 6.0 27 Urinalysis Profile 04/03/2016 [facility] Urine Color Yellow N [address] [place] [address] [phone] Urine Appearance Clear N Urine Specific Blachly 1.021 N 1.010-1.030 Urine pH 5.0 N 5-9 Urine Urobilinogen Negative N Negative Urine Ketones Negative N Negative Urine Protein Negative N Negative Urine Leukocytes Negative N Negative Urine Blood Negative N Negative Urine Nitrite Negative N Negative Urine Bilirubin Negative N Negative Urine Glucose Negative N Negative CBC Auto Diff 04/03/2016 [facility] White Blood 5.2 10^3/uL N 3.5-10.[address] [place] [address] [phone] Red Blood Count 5.20 10^6/uL N 4.0-5.4 Hemoglobin 15.1 g/dL N 14.0-18.0 Hematocrit 45 % N 42-52 Mean Corpuscular Volume 87 fL N 80-94 Mean Corpuscular Hemoglobin 29 pg N 27-31 Mean Corpuscular HGB Conc 33 g/dL N 31-36 Red Cell Distribution Width 13 % N 10.5-15 Platelet Count 181 10^3/uL N 150-450 Mean Platelet Volume 9 um3 N 7.4-10.4 Abs Neutrophils 2.7 10^3/uL N 1.5-7.7 Abs Lymphocytes 1.8 10^3/uL N 1.0-4.8 Abs Monocytes 0.5 10^3/uL N 0-0.8 Abs Eosinophils 0.2 10^3/uL N 0-0.6 Abs Basophils 0 10^3/uL N 0-0.2 Abs Nucleated RBC 0 10^3/uL N Granulocyte % 52.0 % N 38-83 Lymphocyte % 34.4 % N 25-47 Monocyte % 10.0 % High 1-9 Eosinophil % 3.2 % N 0-6 Basophil % 0.4 % N 0-2 Nucleated Red Blood Cells % 0.1 N CBC Auto Diff 08/17/2015 [facility] White Blood 6.5 10^3/uL N 3.5-10.[address] [place] [address] [phone] Red Blood Count 4.81 10^6/uL N 4.0-5.4 Hemoglobin 13.8 g/dL Low 14.0-18.0 Hematocrit 41 % Low 42-52 Mean Corpuscular Volume 85 fL N 80-94 Mean Corpuscular Hemoglobin 29 pg N 27-31 Mean Corpuscular HGB Conc 34 g/dL N 31-36 Red Cell Distribution Width 13 % N 10.5-15 Platelet Count 207 10^3/uL N 150-450 Mean Platelet Volume 8 um3 N 7.4-10.4 Abs Neutrophils 3.7 10^3/uL N 1.5-7.7 Abs Lymphocytes 1.9 10^3/uL N 1.0-4.8 Abs Monocytes 0.6 10^3/uL N 0-0.8 Abs Eosinophils 0.2 10^3/uL N 0-0.6 Abs Basophils 0 10^3/uL N 0-0.2 Abs Nucleated RBC 0.01 10^3/uL N Granulocyte % 57.7 % N 38-83 Lymphocyte % 29.4 % N 25-47 Monocyte % 9.4 % High 1-9 Eosinophil % 2.9 % N 0-6 Basophil % 0.6 % N 0-2 Nucleated Red Blood Cells % 0.1 N Inr/Protime 08/17/2015 [facility] Inr 1.03 N 0.89-1.[address] [place] [address] [phone] Laboratory test 08/17/2015 [facility] Partial 32.3 seconds N 26.0-36.[address] [place] [address] PTT [phone] Lactic Acid 1.2 mmol/L N 0.5-2.0 28 Comp Metabolic Panel 08/17/2015 [facility] Sodium 137 mmol/L N 133-[address] [place] [address] [phone] Potassium 3.8 mmol/L N 3.5-5.0 Chloride 103 mmol/L N 101-111 Co2 Carbon Dioxide 28 mmol/L N 22-32 Anion Gap 6 mmol/L N 2-11 Glucose 150 mg/dL High 70-100 Blood Urea Nitrogen 15 mg/dL N 6-24 Creatinine 0.79 mg/dL N 0.67-1.17 BUN/Creatinine Ratio 19.0 N 8-20 Calcium 9.0 mg/dL N 8.6-10.3 Total Protein 6.4 g/dL N 6.4-8.9 Albumin 4.1 g/dL N 3.2-5.2 Globulin 2.3 g/dL N 2-4 Albumin/Globulin Ratio 1.8 N 1-3 Total Bilirubin 0.30 mg/dL N 0.2-1.0 Alkaline Phosphatase 70 U/L N 34-104 Alt 23 U/L N 7-52 Ast 17 U/L N 13-39 Egfr Non- 97.0 N >60 Egfr 124.7 N >60 29 Laboratory test 08/17/2015 [facility] Magnesium 2.2 mg/dL N 1.9-2.[address] [place] [address] [phone] Lipase 37 U/L N 11.0-82.0 Creatine Kinase(CK) 74 U/L N 10-223 C Reactive Protein 2.41 mg/L N < 5.00 30 Troponin-I (TnI) 0.00 ng/mL N <0.03 31 CKMB 08/17/2015 [facility] CKMB ng/mL 2.2 ng/mL N 0.6-6.[address] [place] [address] [phone] Laboratory test 08/17/2015 [facility] TSH (Thyroid Stim 0.82 N 0.34-5.[address] Horm) ?IU/[place] [address] [phone] Lipid Profile 08/17/2015 [facility] Triglycerides 430 mg/dL N 32 (Trig/Chol/HDL) [address] [place] [address] [phone] Cholesterol 152 mg/dL N 33 HDL Cholesterol 31.4 mg/dL N 34 Laboratory test 12/28/2014 [facility] Surgical SEE RESULT [address] [place] [place] [address] [phone] Laboratory test 09/24/2014 [facility] Hemoglobin A1c 5.8 % N Less 36, [address] than 6.0 [place] [address] [phone] Comp Metabolic 09/24/2014 [facility] Sodium 138 mmol/L N 133- [address] [place] [address] [phone] Potassium 4.0 mmol/L N 3.5-5.0 Chloride 105 mmol/L N 101-111 Co2 Carbon Dioxide 27 mmol/L N 22-32 Anion Gap 6 mmol/L N 2-11 Glucose 134 mg/dL High 70-100 Blood Urea Nitrogen 15 mg/dL N 6-24 Creatinine 0.75 mg/dL N 0.67-1.17 BUN/Creatinine Ratio 20.0 N 8-20 Calcium 9.2 mg/dL N 8.6-10.3 Total Protein 6.3 g/dL Low 6.4-8.9 Albumin 4.3 g/dL N 3.2-5.2 Globulin 2.0 g/dL N 2-4 Albumin/Globulin Ratio 2.2 N 1-3 Total Bilirubin 0.60 mg/dL N 0.2-1.0 Alkaline Phosphatase 71 U/L N 34-104 Alt 29 U/L N 7-52 Ast 19 U/L N 13-39 Egfr Non- 103.3 N >60 Egfr 132.8 N >60 38 Lipid Profile 09/24/2014 [facility] Triglycerides 147 mg/dL N 39 (Trig/Chol/HDL) [address] [place], [place] [id number] [phone] Cholesterol 162 mg/dL N 40 HDL Cholesterol 35.2 mg/dL N 41 LDL Cholesterol 97 mg/dL N 42 Laboratory 09/24/2014 [facility] Hepatitis C Nonreactive N Nonreactive 43 test finding [address] Antibody [place], [place] [id number] [phone] Wound 08/31/2014 [facility] Wound/Misc (SEE NOTE) 44 Culture/Sensi [address] [place] [address] Stain [phone] Stool For 08/01/2014 [facility] Stool Occult (SEE NOTE) 45 Blood [address] [facility] [place] [address] [phone] Urinalysis 08/01/2014 [facility] Urine Color Yellow N Profile [address] [place] [address] [phone] Urine Appearance Clear N Urine Specific Blach[place] 1.025 N 1.010-1.030 Urine pH 5.0 N 5-9 Urine Urobilinogen Negative N Negative Urine Ketones Negative N Negative Urine Protein Negative N Negative Urine Leukocytes Negative N Negative Urine Blood Negative N Negative Urine Nitrite Negative N Negative Urine Bilirubin Negative N Negative Urine Glucose Negative N Negative Type & Screen 08/01/2014 [facility] Patient Blood Type A Positive N 46 [address] [place], [place] [id number] [phone] Antibody Screen NEGATIVE N CBC Auto Diff 08/01/2014 [facility] White Blood 10.4 10^3/uL N 4.8-10.[address] [place] [address] [phone] Red Blood Count 5.06 10^6/uL N 4.0-5.4 Hemoglobin 15.2 g/dL N 14.0-18.0 Hematocrit 44 % N 42-52 Mean Corpuscular Volume 88 fL N 80-94 Mean Corpuscular Hemoglobin 30 pg N 27-31 Mean Corpuscular HGB Conc 34 g/dL N 31-36 Red Cell Distribution Width 13 % N 10.5-15 Platelet Count 185 10^3/uL N 150-450 Mean Platelet Volume 9 um3 N 7.4-10.4 Abs Neutrophils 7.5 10^3/uL N 1.5-7.7 Abs Lymphocytes 1.8 10^3/uL N 1.0-4.8 Abs Monocytes 1.1 10^3/uL High 0-0.8 Abs Eosinophils 0.1 10^3/uL N 0-0.6 Abs Basophils 0 10^3/uL N 0-0.2 Abs Nucleated RBC 0 10^3/uL N Granulocyte % 71.9 % N 38-83 Lymphocyte % 17.1 % Low 25-47 Monocyte % 10.1 % High 1-9 Eosinophil % 0.5 % N 0-6 Basophil % 0.4 % N 0-2 Nucleated Red Blood Cells % 0 N Inr/Protime 08/01/2014 [facility] Inr 1.10 High 0.78-1.07 47 [address] [place] [address] [phone] Laboratory test 08/01/2014 [facility] Activated 27.9 N 24.0- 36.1 finding [address] [facility] [place] [address] Thrombo Time [phone] Lactic Acid 1.7 mmol/L N 0.5-2.2 B Type Natriuretic Peptide 76 pg/mL N 48 Comp Metabolic Panel 08/01/2014 [facility] Sodium 136 mmol/L N 133-145 [address] [place] [address] [phone] Potassium 3.4 mmol/L Low 3.5-5.0 Chloride 103 mmol/L N 101-111 Co2 Carbon Dioxide 26 mmol/L N 22-32 Anion Gap 7 mmol/L N 2-11 Glucose 165 mg/dL High 70-100 Blood Urea Nitrogen 14 mg/dL N 6-24 Creatinine 0.85 mg/dL N 0.67-1.17 BUN/Creatinine Ratio 16.5 N 8-20 Calcium 9.3 mg/dL N 8.6-10.3 Total Protein 6.6 g/dL N 6.4-8.9 Albumin 4.1 g/dL N 3.2-5.2 Globulin 2.5 g/dL N 2-4 Albumin/Globulin Ratio 1.6 N 1-3 Total Bilirubin 0.70 mg/dL N 0.2-1.0 Alkaline Phosphatase 65 U/L N 34-104 Alt 30 U/L N 7-52 Ast 19 U/L N 13-39 Egfr Non- 89.4 N >60 Egfr 114.9 N >60 49 Laboratory test 08/01/2014 [facility] Lipase 10 U/L Low 11.0- 82.0 finding [address] [place] [address] [phone] Creatine Kinase 82 U/L N 10-223 CKMB 1.8 ng/mL N 0.6-6.3 Troponin I 0.01 ng/mL N <0.03 50 Lipid Panel 10/01/2012 [facility] Triglycerides 274 mg/dL High 40-200 [address] [place] [address] [phone] Cholesterol 194 mg/dL Less than 200 HDL Cholesterol 40 mg/dL 40-60 51 Cholesterol/HDL Ratio 4.9 Average High 1-4.44 LDL Cholesterol 99.2 mg/dL Less Than 100 52 CMP Panel 10/01/2012 [facility] Sodium 140 mmol/L 133-145 [address] [place] [address] [phone] Potassium 4.3 mmol/L 3.5-5.0 Chloride 103 mmol/L 101-111 Co2 Carbon Dioxide 32.0 mmol/L 22-32 Anion Gap 5.0 mmol/L 2-11 Glucose 131 mg/dL High 70-100 Blood Urea Nitrogen 23 mg/dL 6-24 Creatinine 0.80 mg/dL 0.50-1.40 BUN/Creatinine Ratio 28.8 High 8-20 Calcium 9.7 mg/dL 8.1-9.9 Total Protein 6.6 g/dL 6.2-8.1 Albumin 4.2 g/dL 3.2-5.2 Globulin 2.4 g/dL 2-4 Albumin/Globulin Ratio 1.8 1-3 Total Bilirubin 0.6 mg/dL 0.4-1.5 Alkaline Phosphatase 67 U/L 30-110 Alt 31 U/L 14-54 Ast 24 U/L 12-42 Egfr Non- 96.4 >60 Egfr 124.0 >60 53 Laboratory test 10/01/2012 [facility] Hemoglobin A1c 5.8 % Less than [address] 6.0 [place] [address] [phone] Vitamin B12 484 pg/mL 180-914 55 Surgical 12/04/2011 [facility] Surgical [address] Pathology <SEE NOTE> [place] [address] [phone] Laboratory 09/25/2011 [facility] Hemoglobin A1c 6.0 % Less 57 test finding [address] [place] [address] 6.0 [phone] Lipid Panel 09/25/2011 [facility] Triglyceride 199 mg/dL 40- [address] [place] [address] [phone] Cholesterol 180 mg/dL Less Than 200 58 High Density Lipoprotein 39 mg/dL Low 40-60 59 Cholesterol/HDL Ratio 4.62 AVERAGE 1-4.97 Low Density Lipoprotein 101 mg/dL High Less Than 100 60 CBC Auto Diff 06/21/2011 [facility] White Blood 7.3 CUMM 4.8- 10.[address] [place], [place] [id number] [phone] Red Cell Count 4.96 CUMM 4.6-6.2 Hemoglobin 14.3 g/dL 14.0-18.0 Hematocrit 42 % 42-52 Mean Corpuscular Volume 85 um3 80-94 Mean Corpuscular Hemoglob 29 pg 27-31 Mean Corpuscular HGB Cone 34 g/dL 32-36 Redcell Distribution WDTH 13 % 10.5-15 Platelet Count 242 CUMM 150-450 Mean Platelet Volume 7.9 um3 7.4-10.4 Gran % 63.5 % 38-83 Lymph % 26.0 % 25-47 Mononuclear % 8.4 % 1-9 Eosinophil % 1.7 % 0-6 Basophil % 0.4 % 0-2 Abs Lymphs 1.9 1.0-4.8 Abs Mononuclear 0.6 0-0.8 Absolute Neutrophil Count 4.6 1.5-7.7 Abs Eosinophils 0.1 0-0.6 Abs Basophils 0 0-0.2 Laboratory test 06/21/2011 [facility] Glucose 135 mg/dL High 70-[address] [place] [address] [phone] Blood Culture 06/05/2011 [facility] M [address] ---- <[place] [address] NOTE> [phone] Comp Metabolic 06/05/2011 [facility] Sodium 136 mmol/L 135- [address] [place] [address] [phone] Potassium 4.0 mmol/L 3.5-5.0 Chloride 101 mmol/L 101-111 Co2 (Carbon Dioxide) 28.0 mmol/L 22-32 Anion Gap 7.0 mmol/L 2-11 62 Glucose 133 mg/dL High 70-100 BUN 16 mg/dL 6-24 Creatinine 0.9 mg/dL 0.50-1.40 One Over Creatinine 1.11 BUN/Creatinine Ratio 17.8 8-20 Calcium 9.7 mg/dL 8.1-9.9 Total Protein 7.4 GM/DL 6.2-8.1 Albumin 4.0 GM/DL 3.2-5.2 Globulin 3.4 GM/DL 2-4 Albumin/Globulin Ratio 1.2 1-3 Bilirubin Total 0.9 mg/dL 0.4-1.5 63 Alkaline Phosphatase 88 U/L 39-117 Alt (SGPT) 29 U/L 17-63 Ast (Sgot) 22 U/L 12-42 eGFR Non- 84.4 > 60 eGFR 108.6 > 60 64 CBC Auto Diff 06/05/2011 [facility] White Blood 9.7 CUMM 4.8- 10.[address] [place] [address] [phone] Red Cell Count 4.89 CUMM 4.6-6.2 Hemoglobin 14.0 g/dL 14.0-18.0 Hematocrit 41 % Low 42-52 Mean Corpuscular Volume 84 um3 80-94 Mean Corpuscular Hemoglob 29 pg 27-31 Mean Corpuscular HGB Cone 34 g/dL 32-36 Redcell Distribution WDTH 13 % 10.5-15 Platelet Count 241 CUMM 150-450 Mean Platelet Volume 6.7 um3 Low 7.4-10.4 65 Manual Differential 06/05/2011 [facility] Polysegmented 83 % 38-[address] [place] [address] [phone] Band Neutrophil 2 % 0-8 Lymphocyte 6 % Low 25-47 Monocyte 6 % 0-13 Metamyelocyte 3 % High 0-2 Absolute Neutrophil Count 8.2 RBC Morphology NORMAL Laboratory test 06/05/2011 [facility] C Reactive 5.0 mg/dL High Less Than finding [address] Protein 0.5 [place] [address] [phone] Urinalysis 06/05/2011 [facility] Ua Color YELLOW Yellow [address] [place] [address] [phone] Appearance-Urine CLEAR Clear Specific Blachly-Ur 1.018 1.010-1.030 Esterase-Urine NEGATIVE Negative Nitrite NEGATIVE Negative [id number] NEGATIVE Negative Protein-Urine NEGATIVE Negative PH-Urine 5.5 5-9 Blood-Urine NEGATIVE Negative Ketones-Urine NEGATIVE Negative Bilirubin-Ur NEGATIVE Negative Glucose-Urine NEGATIVE Negative International Normalized 10/30/2010 [facility] Inr 1.26 High 0.82-1.[address] [place] [address] [phone] Protime 15.0 SEC High 10.2-14.8 67 Laboratory test 10/30/2010 [facility] CPK (Creatine 54 U/L 0- [address] Kinase) [place] [address] [phone] TSH 1.12 MIU/ML 0.34-5.60 Erythrocyte Sed Rate 18 MM/HR 0-40 International Normalized 10/23/2010 [facility] Inr 3.30 High 0.82-1.[address] [place] [address] [phone] Protime 41.5 SEC High 10.2-14.8 69 International Normalized 10/16/2010 [facility] Inr 1.56 High 0.82-1.17 70 Ratio [address] [place] [address] [phone] Protime 18.9 SEC High 10.2-14.8 71 Comp Metabolic Panel 10/13/2010 [facility] Sodium 139 mmol/L 135-[address] [place] [address] [phone] Potassium 4.6 mmol/L 3.5-5.0 Chloride 101 mmol/L 101-111 Co2 (Carbon Dioxide) 31.0 mmol/L 22-32 Anion Gap 7.0 mmol/L 2-11 72 Glucose 102 mg/dL High 70-100 BUN 19 mg/dL 6-24 Creatinine 0.80 mg/dL 0.50-1.40 One Over Creatinine 1.20 BUN/Creatinine Ratio 23.8 High 8-20 Calcium 9.5 mg/dL 8.1-9.9 Total Protein 6.7 GM/DL 6.2-8.1 Albumin 4.3 GM/DL 3.2-5.2 Globulin 2.4 GM/DL 2-4 Albumin/Globulin Ratio 1.8 1-3 Bilirubin Total 0.6 mg/dL 0.4-1.5 73 Alkaline Phosphatase 80 U/L 39-117 Alt (SGPT) 26 U/L 17-63 Ast (Sgot) 19 U/L 12-42 eGFR Non- 96.7 > 60 eGFR 124.4 > 60 74 Laboratory test 10/13/2010 [facility] Hemoglobin A1c 5.6 % Less [address] Than 6.0 [place] [address] [phone] International 09/29/2010 [facility] Inr 2.29 High 0.82-1.1 76 Normalized Ratio [address] 7 [place] [address] [phone] Protime 28.2 SEC High 10.2-14.8 77 Protime W/ Inr 09/21/2010 [facility] Inr 1.7 a fib 2.5-3.[address] [place] [address] [phone] Inr 2.44 High 0.82-1.17 78 Protime 30.2 SEC High 10.2-14.8 79 Protime W/ Inr 09/08/2010 [facility] Inr 2.4 Low 2.5 -3.5 aor. valve Creatinine 07/26/2010 [facility] Creatinine 0.90 mg/dL 0.50- 1.[address] [place] [address] [phone] One Over Creatinine 1.10 eGFR Non- 84.7 > 60 eGFR 108.9 > 60 80 Laboratory test 07/26/2010 [facility] BUN 15 mg/dL 6-24 finding [address] [place] [address] [phone] Protime 07/24/2010 [facility] Inr 1.14 0.82-1.17 81, [address] [place] [address] [phone] Protime 13.5 SEC 10.2-14.8 83 CBC With 07/24/2010 [facility] White Blood 4.8 CUMM 4.8-10.[address] [place] [address] [phone] Red Cell Count 4.64 CUMM 4.6-6.2 Hemoglobin 13.6 g/dL Low 14.0-18.0 Hematocrit 40 % Low 42-52 Mean Corpuscular Volume 86 um3 80-94 Mean Corpuscular Hemoglob 30 pg 27-31 Mean Corpuscular HGB Cone 34 g/dL 32-36 Redcell Distribution WDTH 12 % 10.5-15 Platelet Count 229 CUMM 150-450 Mean Platelet Volume 9.1 um3 7.4-10.4 Gran % 49.5 % 38-83 Lymph % 35.8 % 25-47 Mononuclear % 10.7 % High 1-9 Eosinophil % 3.5 % 0-6 Basophil % 0.5 % 0-2 Abs Lymphs 1.7 1.0-4.8 Abs Mononuclear 0.5 0-0.8 Absolute Neutrophil Count 2.4 1.5-7.7 Abs Eosinophils 0.2 0-0.6 Abs Basophils 0 0-0.2 Laboratory test 07/24/2010 [facility] Ferritin 303 NG/ML 24- 336 finding [address] [place] [address] [phone] Vitamin B12 511 pg/mL 180-914 Iron & Iron Binding 07/24/2010 [facility] Iron Total 104 g/dL 45-182 Capacity [address] [place] [address] [phone] Unsaturated Iron Binding 284 g/dL Total Iron Binding Capacity 388 g/dL 250-450 % Iron Saturation 27 % 15-55 Laboratory test 07/24/2010 [facility] LDH 143 U/L 95-185 finding [address] [place] [address] [phone] Laboratory test 07/24/2010 [facility] PTT (Aptt) 30.9 25.15- 38.53 finding [address] [place] [address] [phone] Basic Metabolic 07/24/2010 [facility] Sodium 138 135-[address] mmol/[place] [address] [phone] Potassium 3.9 mmol/L 3.5-5.0 Chloride 103 mmol/L 101-111 Co2 (Carbon Dioxide) 29.0 mmol/L 22-32 Anion Gap 6.0 mmol/L 2-11 84 Glucose 112 mg/dL High 70-100 BUN 23 mg/dL 6-24 Creatinine 0.90 mg/dL 0.50-1.40 One Over Creatinine 1.10 BUN/Creatinine Ratio 25.6 High 8-20 Calcium 8.8 mg/dL 8.1-9.9 eGFR Non- 84.7 > 60 eGFR 108.9 > 60 85 Comp Metabolic Panel 04/14/2010 [facility] Sodium 142 mmol/L 135-145 [address] [place] [address] [phone] Potassium 3.8 mmol/L 3.5-5.0 Chloride 105 mmol/L 101-111 Co2 (Carbon Dioxide) 31.0 mmol/L 22-32 Anion Gap 6.0 mmol/L 2-11 86 Glucose 109 mg/dL High 70-100 87 BUN 15 mg/dL 6-24 Creatinine 0.90 mg/dL 0.50-1.40 One Over Creatinine 1.10 BUN/Creatinine Ratio 16.7 8-20 Calcium 9.4 mg/dL 8.1-9.9 Total Protein 6.7 GM/DL 6.2-8.1 Albumin 4.6 GM/DL 3.2-5.2 Globulin 2.1 GM/DL 2-4 Albumin/Globulin Ratio 2.2 1-3 Bilirubin Total 1.0 mg/dL 0.4-1.5 88 Alkaline Phosphatase 57 U/L 39-117 Alt (SGPT) 30 U/L 17-63 Ast (Sgot) 25 U/L 12-42 eGFR Non- 90.0 > 60 eGFR 108.9 > 60 89 Lipid Profile 04/14/2010 [facility] Triglyceride 86 mg/dL 40- 200 (Trig/Chol/HDL) [address] [place] [address] [phone] Cholesterol 186 mg/dL Less Than 200 90 High Density Lipoprotein 45 mg/dL 40-60 91 Cholesterol/HDL Ratio 4.13 AVERAGE 1-4.97 Low Density Lipoprotein 124 mg/dL High Less Than 100 92 Laboratory 04/14/2010 [facility] Hemoglobin A1c 6.3 % High Less 93 test finding [address] 6[address]0 [place] [address] [phone] Throat-Beta 12/27/2009 [facility] Throat-Beta NF [address] [place] [address] [phone] Surgical 11/15/2009 [facility] Surgical [address] Pathology ---- <[place] [address] NOTE> [phone] Laboratory 11/15/2009 [facility] Clotest NEGATIVE test finding [address] [place] [address] [phone] 1 Serum levels of PSA measured using the [employer] DXI Hybritech immunoassay should not be interpreted as absolute evidence of the presence or absence of disease. The PSA value should be used in conjunction with other pertinent clinical diagnostic procedures. The values obtained with different assay methods or kits cannot be used interchangeably. 2 Unable to calculate due to low microalbumin 3 Therapeutic target for the treatment of diabetes mellitus patients is <7% HBA1C, and in selective patients <6.0%. Please refer to [employer] diabetic care guidelines for further information. 4 Serum levels of PSA measured using the [employer] [place] DXI Hybritech immunoassay should not be interpreted as absolute evidence of the presence or absence of disease. The PSA value should be used in conjunction with other pertinent clinical diagnostic procedures. The values obtained with different assay methods or kits cannot be used interchangeably. 5 Because ethnic data is not always readily available, this report includes an eGFR for both -Americans and non- Americans. The National Kidney Disease Education Program (NKDEP) does not endorse the use of the MDRD equation for patients that are not between the ages of 18 and 70, are , have extremes of body size, muscle mass, or nutritional status, or are non- or non-. According to the National Kidney Foundation, irrespective of diagnosis, the stage of the disease is based on the level of kidney function: Stage Description GFR(mL/min/1.73 m(2)) 1 Kidney damage with normal or decreased GFR 90 2 Kidney damage with mild decrease in GFR 60-89 3 Moderate decrease in GFR 30-59 4 Severe decrease in GFR 15-29 5 Kidney failure <15 (or dialysis) 6 Desirable: <150 Borderline High: 150-199 High: 200-499 Very High: >500 7 Desirable: <200 Borderline High: 200-239 High: >239 8 Low: <40 Desirable: 40-60 High: >60 9 Desirable: <100 Near Optimal: 100-129 Borderline High: 130-159 High: 160-189 Very High: >189 10 Therapeutic target for the treatment of diabetes mellitus patients is <7% HBA1C, and in selective patients <6.0%. Please refer to [employer] diabetic care guidelines for further information. 11 Because ethnic data is not always readily available, this report includes an eGFR for both -Americans and non- Americans. The National Kidney Disease Education Program (NKDEP) does not endorse the use of the MDRD equation for patients that are not between the ages of 18 and 70, are , have extremes of body size, muscle mass, or nutritional status, or are non- or non-. According to the National Kidney Foundation, irrespective of diagnosis, the stage of the disease is based on the level of kidney function: Stage Description GFR(mL/min/1.73 m(2)) 1 Kidney damage with normal or decreased GFR 90 2 Kidney damage with mild decrease in GFR 60-89 3 Moderate decrease in GFR 30-59 4 Severe decrease in GFR 15-29 5 Kidney failure <15 (or dialysis) 12 Desirable: <150 Borderline High: 150-199 High: 200-499 Very High: >500 13 Desirable: <200 Borderline High: 200-239 High: >239 14 Low: <40 Desirable: 40-60 High: >60 15 Desirable: <100 Near Optimal: 100-129 Borderline High: 130-159 High: 160-189 Very High: >189 16 ADDITIONAL INFORMATION Testing performed by [facility]. This test was developed and its performance characteristics determined by [facility] in a manner consistent with CLIA requirements. This test has not been cleared or approved by the U.S. Food and Drug Administration. 17 ADDITIONAL INFORMATION Testing performed by Liquid Chromatography-Tandem Mass Spectrometry (LC-MS/MS). This test was developed and its performance characteristics determined by [facility] in a manner consistent with CLIA requirements. This test has not been cleared or approved by the U.S. Food and Drug Administration. Test Performed by: [place] [address] 18 Serum levels of PSA measured using the [employer] DXI Hybritech immunoassay should not be interpreted as absolute evidence of the presence or absence of disease. The PSA value should be used in conjunction with other pertinent clinical diagnostic procedures. The values obtained with different assay methods or kits cannot be used interchangeably. 19 Serum levels of PSA measured using the [employer] [place] DXI Hybritech immunoassay should not be interpreted as absolute evidence of the presence or absence of disease. The PSA value should be used in conjunction with other pertinent clinical diagnostic procedures. The values obtained with different assay methods or kits cannot be used interchangeably. 20 Desirable <150 Borderline high 150-199 High 200-499 Very High >500 21 Desirable <200 Borderline high 200-239 High >239 22 Low <40 Desirable: 40-60 High: >60 23 Desirable: <100 mg/dL Near Optimal: 100-129 mg/dL Borderline High: 130-159 mg/dL High: 160-189 mg/dL Very High: >189 mg/dL 24 Desirable: <100 mg/dL Near Optimal: 100-129 mg/dL Borderline High: 130-159 mg/dL High: 160-189 mg/dL Very High: >189 mg/dL 25 Because ethnic data is not always readily available, this report includes an eGFR for both -Americans and non- Americans. The National Kidney Disease Education Program (NKDEP) does not endorse the use of the MDRD equation for patients that are not between the ages of 18 and 70, are , have extremes of body size, muscle mass, or nutritional status, or are non- or non-. According to the National Kidney Foundation, irrespective of diagnosis, the stage of the disease is based on the level of kidney function: Stage Description GFR(mL/min/1.73 m(2)) 1 Kidney damage with normal or decreased GFR 90 2 Kidney damage with mild decrease in GFR 60-89 3 Moderate decrease in GFR 30-59 4 Severe decrease in GFR 15-29 5 Kidney failure <15 (or dialysis) 26 Serum levels of PSA measured using the [employer] Appdra DXI Hybritech immunoassay should not be interpreted as absolute evidence of the presence or absence of disease. The PSA value should be used in conjunction with other pertinent clinical diagnostic procedures. The values obtained with different assay methods or kits cannot be used interchangeably. 27 Therapeutic target for the treatment of diabetes Mellitus patients is <7% HBA1C, and in selective patients <6.0%.Please refer to [employer]eless Diabetes Association Diabetic care guidelines for further information. 28 NVS Severe Sepsis and Septic Shock Management Bundle Measure requires all lactic acids initially measuring >2.0mmol/L be repeated. 29 Because ethnic data is not always readily available, this report includes an eGFR for both -Americans and non- Americans. The National Kidney Disease Education Program (NKDEP) does not endorse the use of the MDRD equation for patients that are not between the ages of 18 and 70, are , have extremes of body size, muscle mass, or nutritional status, or are non- or non-. According to the National Kidney Foundation, irrespective of diagnosis, the stage of the disease is based on the level of kidney function: Stage Description GFR(mL/min/1.73 m(2)) 1 Kidney damage with normal or decreased GFR 90 2 Kidney damage with mild decrease in GFR 60-89 3 Moderate decrease in GFR 30-59 4 Severe decrease in GFR 15-29 5 Kidney failure <15 (or dialysis) 30 Acute inflammation: >10.00 31 Reference Range and Interpretation: TnI (ng/mL) Interpretation Less Than 0.03 ng/mL Not supportive of diagnosis of MD 0.03 - 0.50 ng/mL Indeterminate: suggest serial studies if clinically indicated. Greater than 0.5 ng/mL Consistent with diagnosis of MD 32 Desirable <150 Borderline high 150-199 High 200-499 Very High >500 33 Desirable <200 Borderline high 200-239 High >239 34 Low <40 Desirable: 40-60 High: >60 35 SEE RESULT BELOW Name: GERHARD LEW : [address]: Louie Quinonez MD Acct: [id number] Unit: [id number] AGE: 69 Location: ENDO Re12/28/14 SEX: M Status: REG REF SPEC: [id number] RON: 12/28/141133 [facility] DR: Louie Quinonez MD REQ: [id number] RECD: 12/28/14826 STATUS: CONNIE MCLAUGHLIN DR: Chen Ambrocio MD _ ORDERED: LEVEL IV FINAL DIAGNOSIS Gastroesophageal junction, biopsy: -- Squamous and columnar mucosa with chronic inflammation and reactive epithelial change. -- Negative for intestinal metaplasia and dysplasia. CLINICAL HISTORY No additional information provided POST-OPERATIVE DIAGNOSIS Esophagus - stable Benjamin's; stomach and duodenum - normal GROSS DESCRIPTION The specimen is received in formalin labeled, GE Junction, and consists of a 0.4 x 0.3 x 0.2 cm marti-pink irregular soft tissue fragment, which is submitted entirely in one cassette. Signed (signature on file) Rochelle Yeboah MD 1415 END OF REPORT * ML=Testing performed at Main Lab DEPARTMENT OF PATHOLOGY, [address] [place], [place] [address] Elijah Mc M.D. Director [facility] # [id number] PT IS FASTING 37 Therapeutic target for the treatment of diabetes Mellitus patients is <7% HBA1C, and in selective patients <6.0%.Please refer to Stateless Diabetes Association Diabetic care guidelines for further information. 38 Because ethnic data is not always readily available, this report includes an eGFR for both -Americans and non- Americans. The National Kidney Disease Education Program (NKDEP) does not endorse the use of the MDRD equation for patients that are not between the ages of 18 and 70, are , have extremes of body size, muscle mass, or nutritional status, or are non- or non-. According to the National Kidney Foundation, irrespective of diagnosis, the stage of the disease is based on the level of kidney function: Stage Description GFR(mL/min/1.73 m(2)) 1 Kidney damage with normal or decreased GFR 90 2 Kidney damage with mild decrease in GFR 60-89 3 Moderate decrease in GFR 30-59 4 Severe decrease in GFR 15-29 5 Kidney failure <15 (or dialysis) 39 Desirable <150 Borderline high 150-199 High 200-499 Very High >500 40 Desirable <200 Borderline high 200-239 High >239 41 Low <40 Desirable: 40-60 High: >60 42 Desirable: <100 mg/dL Near Optimal: 100-129 mg/dL Borderline High: 130-159 mg/dL High: 160-189 mg/dL Very High: >189 mg/dL 43 PT IS FASTING 44 RUN DATE: 09/04/14 [facility] LAB LIVE PAGE 1 RUN TIME: [address] [facility], [place], [place] [address] Specimen Inquiry Name: GERHARD LEW Kishan : [address]: Salomón Flowers NP Acct: [id number] Unit: [id number] AGE: 68 Location: [facility] Re08/31/14 SEX: M Status: REG REF SPEC: [id number] RON: 08/31/[address] [facility] [address]: Salomón Flowers NP REQ: [id number] RECD: 08/31/14 STATUS: COMP _ SOURCE: WOUND SPDESC:ABDOMINAL ORDERED: Culture Stain QUERIES: Provider Requisition # [id number] Specimen Description CYST LOWER ABDOMEN Procedure Result Verified Site Wound/Misc Gram Stain Final 09/01/14- 0813 ML 4+ Neutrophils 3+ Epithelial Cells 4+ Gram Positive Cocci Wound/Misc Culture Final 09/04/14- 1035 ML Organism 1 PEPTOSTREPTOCOCCI SPP Quantity 3+ Organism 2 STAPHYLOCOCCUS LUGDENENSIS Quantity 1+ Anaerobic sensitivities are not routinely performed. Positive isolates will be saved for one week. Please call the Microbiology Laboratory if susceptibility testing is needed. 2. STAPHYLOCOCCUS LUGDENENSIS M.I.C. RX --------- ------ Penicillin >=0.5 R Clindamycin <=0.25 S Erythromycin <=0.25 S Gentamicin <=0.5 S Linezolid 1 S Nitrofurantoin <=16 S Oxacillin 2 S CONTINUED ON NEXT PAGE * ML=Testing performed at Main Lab DEPARTMENT OF PATHOLOGY, [address] [place] [address] Elijah Mc M.D. Director [facility] # [id number] RUN DATE: 09/04/14 [facility] LAB LIVE PAGE 2 RUN TIME: [address] [place] [address] Specimen Inquiry Patient: GERHARD LEW [id number] (Continued) Specimen: [id number] Collected: 08/31/14 Received: 08/31/14 (Continued) Procedure Result Verified Site Wound/Misc Culture Final (continued) 09/04/146 2. STAPHYLOCOCCUS LUGDENENSIS (continued) M.I.C. RX --------- ------ * Quinupristin/Dalfopristin <=0.25 S Rifampin <=0.5 S Tetracycline <=1 S Doxycycline - Deduced S * Minocycline - Deduced S Tigecycline <=0.12 S Vancomycin <=0.5 S Imipenem-Deduced S * Ampicillin/Sulbactam-Deduced S Cefazolin-Deduced S * These antibiotics are not available in the [facility] Formulary Contact the Microbiology Department for any additional antibiotic reporting. * ML - MAIN LAB ([facility]) . END OF REPORT * ML=Testing performed at Main Lab DEPARTMENT OF PATHOLOGY, [address] [place] [address] Elijah Mc M.D. Director [facility] # [id number] RUN DATE: 08/01/14 [facility] LAB LIVE PAGE 1 RUN TIME: [address] [place] [address] Specimen Inquiry Name: GERHARD LEW : [address]: Jorge Alberto Giles MD Acct: [id number] Unit: [id number] AGE: 68 Location: ED Re08/01/14 SEX: M Status: REG ER SPEC: [id number] RON: 08/01/14 [facility] [address]: Jorge Alberto Giles MD REQ: [id number] RECD: 08/01/14 STATUS: MIMI MCLAUGHLIN DR: Chen Rayo MD _ SOURCE: STOOL SPDESC: ORDERED: Hemoccult Procedure Result Verified Site Stool Occult Blood Final 08/01/14- 31 ML Stool Occult Blood Positive END OF REPORT * ML=Testing performed at Main Lab DEPARTMENT OF PATHOLOGY, [address] [place] [address] Elijah Mc M.D. Director [facility] # [id number] ABDOMINAL PAIN 47 Please note: Effective July 07, 2014, the reference value for this test has changed due to the validation and activation of a new reagent lot number. 48 >100 to <200 pg/mL: likely compensated congestive heart failure (CHF) 200 to 400 pg/mL: likely moderate CHF >400 pg/mL: likely moderate to severe CHF [place] [facility] 49 Because ethnic data is not always readily available, this report includes an eGFR for both -Americans and non- Americans. The National Kidney Disease Education Program (NKDEP) does not endorse the use of the MDRD equation for patients that are not between the ages of 18 and 70, are , have extremes of body size, muscle mass, or nutritional status, or are non- or non-. According to the National Kidney Foundation, irrespective of diagnosis, the stage of the disease is based on the level of kidney function: Stage Description GFR(mL/min/1.73 m(2)) 1 Kidney damage with normal or decreased GFR 90 2 Kidney damage with mild decrease in GFR 60-89 3 Moderate decrease in GFR 30-59 4 Severe decrease in GFR 15-29 5 Kidney failure <15 (or dialysis) 50 Reference Range and Interpretation: TnI (ng/mL) Interpretation Less Than 0.03 ng/mL Not supportive of diagnosis of MD 0.03 - 0.50 ng/mL Indeterminate: suggest serial studies if clinically indicated. Greater than 0.5 ng/mL Consistent with diagnosis of MD 51 HDL Interpretation: Undesirable: High Risk: Less than 40 MG/DL Desirable: Low Risk: Greater than 60 MG/DL 52 LDL Interpretation: Low Risk Optimal Level: LDL Less than 100 MG/DL Near or Above Optimal: LDL 100-129 MG/DL Borderline High Risk: LDL 130-159 MG/DL High Risk: LDL 160-189 MG/DL Very High Risk: LDL Greater than 189 MG/DL 53 Because ethnic data is not always readily available, this report includes an eGFR for both -Americans and non- Americans. The National Kidney Disease Education Program (NKDEP) does not endorse the use of the MDRD equation for patients that are not between the ages of 18 and 70, are , have extremes of body size, muscle mass, or nutritional status, or are non- or non-. According to the National Kidney Foundation, irrespective of diagnosis, the stage of the disease is based on the level of kidney function: Stage Description GFR(mL/min/1.73 m(2)) 1 Kidney damage with normal or decreased GFR 90 2 Kidney damage with mild decrease in GFR 60-89 3 Moderate decrease in GFR 30-59 4 Severe decrease in GFR 15-29 5 Kidney failure <15 (or dialysis) 54 Therapeutic target for the treatment of diabetes Mellitus patients is <7% HBA1C, and in selective patients <6.0%.Please refer to Stateless Diabetes Association Diabetic care guidelines for further information. 55 PT IS FASTING 56 ---- RUN DATE: 12/06/11 [facility] NMI LIVE PAGE 1 RUN TIME: 1313 Specimen Inquiry RUN USER: INTERFACE -- Name: DERIK LEWMOLLY Holley Status: REG REF Re12/04/11 Age/Sex: 66/M Unit#: [id number] Location: [address] [place] [address]. : [birth year] -- Specimen: [id number] Spec Date:12/04/11- [facility] Dr: Louie denson MD Spec Type: SURGICAL P Received:12/05/11 Copies to: Chen butler MD SPECIMEN BIOPSY GASTROESOPHAGEAL JUNCTION HISTORY POST-OP DIAGNOSIS: Esophagus - biopsy for Benjamin's esophagus; stomach a nd duodenum normal CLINICAL INFORMATION: Benjamin's GROSS DESCRIPTION The specimen is received in formalin labelled Gerhard Lew, Biopsy GE Junction, and consists of two fragments of yellow tissue each measuring 0.4 x 0.3 x 0.2 cm. Submitted entirely, one cassette. DIAGNOSIS GE junction, biopsy: A. Squamous mucosa with reactive changes. B. Cardia type mucosa with focal intestinal metaplasia. C. Negative for dysplasia. Signed Electronically by: TRAVIS BROWER 12/06/11 8319 -- -- DEPARTMENT OF PATHOLOGY, [address] [place] [address] [facility] Permit #[id number] Elijah Mc M.D. Director Travis Brower M.D. Project Manager Dir mitzy -- 57 THERAPEUTIC TARGET FOR THE TREATMENT OF DIABETES MELLITUS PATIENTS IS <7% HBA1C, AND IN SELECTIVE PATIENTS <6.0%. PLEASE REFER TO [place] DIAB[employer] ASSOC[employer]ATION DIABETIC CARE GUIDELINES FOR FURTHER INFORMATION. 58 CHOLESTEROL INTERPRETATION: Desirable: Less than 200 MG/DL Borderline-High Risk: 200-239 MG/DL High-Risk: 240 MG/DL and over 59 HDL INTERPRETATION: Undesirable: High Risk: Less than 40 MG/DL Desirable: Low Risk: Greater than 60 MG/DL 60 LDL INTERPRETATION: Low Risk Optimal Level: LDL Less than 100 MG/DL Near or Above Optimal: LDL 100-129 MG/DL Borderline High Risk: LDL 130-159 MG/DL High Risk: LDL 160-189 MG/DL Very High Risk: LDL Greater than 189 MG/DL 61 RUN DATE: 06/10/11 [facility] NMI LIVE PAGE 1 RUN TIME: 1830 Specimen Inquiry RUN USER: INTERFACE Name: GERHARD LEW Kishan Status: DEP ER Re06/05/11 Age/Sex: 65/M Unit#: [id number] Location: : 44 SPEC #: [id number] RON: 06/05/11 STATUS: MIMI REQ #: [id number] RECD: 06/05/[address]: Ritchie ELI,Jluis Lundberg SOURCE: BLOOD ENTR: 06/05/[address]: Cristóbal ELI, Chen Lewis SPDESC: BLOOD,VENO ORDERED: BLOOD CULTURE ACT WKST: BC 06/06/11 #1 Procedure Result Verified Site > AEROBIC CULTURE BOTTLE Final 06/10/111830 ML NO GROWTH AFTER 5 DAYS > ANAEROBIC CULTURE BOTTLE Final 06/10/111830 ML NO GROWTH AFTER 5 DAYS - [facility] Permit #[id number] [address] [place] [address] DEPARTMENT OF PATHOLOGY, [address] [place] [address] [facility] Permit #[id number] Elijah Mc M.D. Director Travis Brower M.D. Machine Clipper 62 Anion gap measurement may be of limited value in the presence of any alkalosis, especially in a combined acid base disorder. . 63 A metabolite of Naproxen, O-desmethylnaproxen, has been shown to interfere with the Jendrassik-Luis A method for measuring total bilirubin. Samples from patients who have taken Naproxen have shown spurious elevation in total bilirubin levels. 64 Because ethnic data is not always readily available, this report includes an eGFR for both -Americans and non- Americans. The National Kidney Disease Education Program (NKDEP) does not endorse the use of the MDRD equation for patients that are not between the ages of 18 and 70, are , have extremes of body size, muscle mass, or nutritional status, or are non- or non-. According to the National Kidney Foundation, irrespective of diagnosis, the stage of the disease is based on the level of kidney function: Stage Description GFR(mL/min/1.73 m(2)) 1 Kidney damage with normal or decreased GFR 90 2 Kidney damage with mild decrease in GFR 60-89 3 Moderate decrease in GFR 30-59 4 Severe decrease in GFR 15-29 5 Kidney failure <15 (or dialysis) 65 Neutrophilia % Lymphopenia % 66 Recommended INR for Patients on Oral Anticoagulants Prophylaxis 2.0 - 3.0 Treatment of thrombosis 2.0 - 3.0 Prevention of embolism 2.0 - 3.0 Prevention of embolism from prosthetic heart valves 2.5 - 3.5 67 DIAGNOSIS,TREATMENT,AND THERAPY MUST BE BASED ON THE INR VALUE ALONE. 68 Recommended INR for Patients on Oral Anticoagulants Prophylaxis 2.0 - 3.0 Treatment of thrombosis 2.0 - 3.0 Prevention of embolism 2.0 - 3.0 Prevention of embolism from prosthetic heart valves 2.5 - 3.5 69 DIAGNOSIS,TREATMENT,AND THERAPY MUST BE BASED ON THE INR VALUE ALONE. 70 Recommended INR for Patients on Oral Anticoagulants Prophylaxis 2.0 - 3.0 Treatment of thrombosis 2.0 - 3.0 Prevention of embolism 2.0 - 3.0 Prevention of embolism from prosthetic heart valves 2.5 - 3.5 71 DIAGNOSIS,TREATMENT,AND THERAPY MUST BE BASED ON THE INR VALUE ALONE. 72 Anion gap measurement may be of limited value in the presence of any alkalosis, especially in a combined acid base disorder. . 73 A metabolite of Naproxen, O-desmethylnaproxen, has been shown to interfere with the Jendrassik-Wild Rose method for measuring total bilirubin. Samples from patients who have taken Naproxen have shown spurious elevation in total bilirubin levels. 74 Because ethnic data is not always readily available, this report includes an eGFR for both -Americans and non- Americans. The National Kidney Disease Education Program (NKDEP) does not endorse the use of the MDRD equation for patients that are not between the ages of 18 and 70, are , have extremes of body size, muscle mass, or nutritional status, or are non- or non-. According to the National Kidney Foundation, irrespective of diagnosis, the stage of the disease is based on the level of kidney function: Stage Description GFR(mL/min/1.73 m(2)) 1 Kidney damage with normal or decreased GFR 90 2 Kidney damage with mild decrease in GFR 60-89 3 Moderate decrease in GFR 30-59 4 Severe decrease in GFR 15-29 5 Kidney failure <15 (or dialysis) 75 THERAPEUTIC TARGET FOR THE TREATMENT OF DIABETES MELLITUS PATIENTS IS <7% HBA1C, AND IN SELECTIVE PATIENTS <6.0%. PLEASE REFER TO [place] DIAB[employer]OCIATION DIABETIC CARE GUIDELINES FOR FURTHER INFORMATION. 76 Recommended INR for Patients on Oral Anticoagulants Prophylaxis 2.0 - 3.0 Treatment of thrombosis 2.0 - 3.0 Prevention of embolism 2.0 - 3.0 Prevention of embolism from prosthetic heart valves 2.5 - 3.5 77 DIAGNOSIS,TREATMENT,AND THERAPY MUST BE BASED ON THE INR VALUE ALONE. 78 Recommended INR for Patients on Oral Anticoagulants Prophylaxis 2.0 - 3.0 Treatment of thrombosis 2.0 - 3.0 Prevention of embolism 2.0 - 3.0 Prevention of embolism from prosthetic heart valves 2.5 - 3.5 79 DIAGNOSIS,TREATMENT,AND THERAPY MUST BE BASED ON THE INR VALUE ALONE. 80 Because ethnic data is not always readily available, this report includes an eGFR for both -Americans and non- Americans. The National Kidney Disease Education Program (NKDEP) does not endorse the use of the MDRD equation for patients that are not between the ages of 18 and 70, are , have extremes of body size, muscle mass, or nutritional status, or are non- or non-. According to the National Kidney Foundation, irrespective of diagnosis, the stage of the disease is based on the level of kidney function: Stage Description GFR(mL/min/1.73 m(2)) 1 Kidney damage with normal or decreased GFR 90 2 Kidney damage with mild decrease in GFR 60-89 3 Moderate decrease in GFR 30-59 4 Severe decrease in GFR 15-29 5 Kidney failure <15 (or dialysis) 81 CALL RESULTS TO [phone] 82 Recommended INR for Patients on Oral Anticoagulants Prophylaxis 2.0 - 3.0 Treatment of thrombosis 2.0 - 3.0 Prevention of embolism 2.0 - 3.0 Prevention of embolism from prosthetic heart valves 2.5 - 3.5 83 DIAGNOSIS,TREATMENT,AND THERAPY MUST BE BASED ON THE INR VALUE ALONE. 84 Anion gap measurement may be of limited value in the presence of any alkalosis, especially in a combined acid base disorder. . 85 Because ethnic data is not always readily available, this report includes an eGFR for both -Americans and non- Americans. The National Kidney Disease Education Program (NKDEP) does not endorse the use of the MDRD equation for patients that are not between the ages of 18 and 70, are , have extremes of body size, muscle mass, or nutritional status, or are non- or non-. According to the National Kidney Foundation, irrespective of diagnosis, the stage of the disease is based on the level of kidney function: Stage Description GFR(mL/min/1.73 m(2)) 1 Kidney damage with normal or decreased GFR 90 2 Kidney damage with mild decrease in GFR 60-89 3 Moderate decrease in GFR 30-59 4 Severe decrease in GFR 15-29 5 Kidney failure <15 (or dialysis) 86 Anion gap measurement may be of limited value in the presence of any alkalosis, especially in a combined acid base disorder. . 87 Note change in reference range as of 01/29/08. The change was based on recommendations from the [employer] Diabetes [employer]. 88 A metabolite of Naproxen, O-desmethylnaproxen, has been shown to interfere with the Jendrassik-Wild Rose method for measuring total bilirubin. Samples from patients who have taken Naproxen have shown spurious elevation in total bilirubin levels. 89 Because ethnic data is not always readily available, this report includes an eGFR for both -Americans and non- Americans. The National Kidney Disease Education Program (NKDEP) does not endorse the use of the MDRD equation for patients that are not between the ages of 18 and 70, are , have extremes of body size, muscle mass, or nutritional status, or are non- or non-. According to the National Kidney Foundation, irrespective of diagnosis, the stage of the disease is based on the level of kidney function: Stage Description GFR(mL/min/1.73 m(2)) 1 Kidney damage with normal or decreased GFR 90 2 Kidney damage with mild decrease in GFR 60-89 3 Moderate decrease in GFR 30-59 4 Severe decrease in GFR 15-29 5 Kidney failure <15 (or dialysis) 90 CHOLESTEROL INTERPRETATION: Desirable: Less than 200 MG/DL Borderline-High Risk: 200-239 MG/DL High-Risk: 240 MG/DL and over 91 HDL INTERPRETATION: Undesirable: High Risk: Less than 40 MG/DL Desirable: Low Risk: Greater than 60 MG/DL 92 LDL INTERPRETATION: Low Risk Optimal Level: LDL Less than 100 MG/DL Near or Above Optimal: LDL 100-129 MG/DL Borderline High Risk: LDL 130-159 MG/DL High Risk: LDL 160-189 MG/DL Very High Risk: LDL Greater than 189 MG/DL 93 THERAPEUTIC TARGET FOR THE TREATMENT OF DIABETES MELLITUS PATIENTS IS <7% HBA1C, AND IN SELECTIVE PATIENTS <6.0%. PLEASE REFER TO [place] [employer]ATION DIABETIC CARE GUIDELINES FOR FURTHER INFORMATION. 94 NEGATIVE FOR GROUP A BETA STREPTOCOCCUS 95 ---- RUN DATE: 11/17/09 [facility] NMI LIVE PAGE 1 RUN TIME: 1307 Specimen Inquiry RUN USER: INTERFACE -- Name: GERHARD LEW Status: REG REF Re11/15/09 Age/Sex: 64/M Unit#: [id number] Location: [address] [place] [address].O.B. : [birth year] -- Specimen: [id number] [facility] Spec Date: 11/15/[address]: Louie cook MD Spec Type: SURGICAL P Received: 11/16/099578 Copies to: Chen butler MD SPECIMEN BIOPSY GASTROESOPHAGEAL JUNCTION HISTORY CLINICAL INFORMATION: Follow-up for erosive esophagitis; Benjamin's GROSS DESCRIPTION The specimen is received in formalin labelled Gerhard Scanza, GE Junction Biopsy, and consists of a marti-birch, soft tissue fragment measuring 0.5 x 0.3 x 0.2 cm. Submitted entirely, one cassette. DIAGNOSIS GE junction, biopsy: A. Gastroesophageal transition zone mucosa with mild reflux esophagitis and focal goblet cell metaplasia. B. No dysplasia is identified. Signed Electronically by: ELIJAH MC MD 11/17/09 1307 -- -- DEPARTMENT OF PATHOLOGY, [address] [place] [address] [facility] Permit #[id number] Elijah Mc M.D. Director Travis Brower M.D. Project Manager Dir mitzy -- Procedures Date Code Description Status 12/05/2017 76862 Holter Monitor Review (24 hr)dr review & interp only Completed 12/05/2017 35364 EKG Tracing & Interpretation Completed 12/02/2017 36693 ECG Monitor/Recording W/Visual Superimposition Completed Scanning 07/25/2017 27591 Biopsy Skin Lesion Single Completed 02/21/2017 43858 Event Monitor/Phys Review/Interp. Completed 01/29/2017 14360 EKG Tracing & Interpretation Completed 11/14/2016 90437 Laparoscopy, Surgical Repair Initial Inguinal Hernia Completed 11/14/2016 45479 Laparoscopy, Surgical Repair Initial Inguinal Hernia Completed 10/13/2015 98666 EKG Tracing & Interpretation Completed 09/16/2015 89398 ECHO Transthoracic, Real-Time 2D With Doppler And Completed Color Flow 08/18/2015 85130 Treadmill Interp/Report Only Completed 08/18/2015 73632 Stress Test Supervsn W/Out I/R Completed 08/17/2015 70945 EKG Tracing & Interpretation Completed 10/15/2014 91559 ECHO Stress Test Incl Perf Contiuous ekg Monitoring Completed W/Phys Superv 09/06/2014 76941 EKG Tracing & Interpretation Completed 08/31/2014 06349 I&D Of Abscess Complicated Completed 08/18/2014 94860 ECHO Transthoracic, Real-Time 2D With Doppler And Completed Color Flow 08/11/2014 66120 Holter Monitoring 24 HR New Completed 08/02/2014 16165 EKG, Interpretation Only Completed 12/10/2013 [id number] Diabetic Retinal Eye Exam Completed 11/10/2013 27006501 Colonoscopy Completed 08/25/2013 80778 ECHO Transthoracic, Real-Time 2D With Doppler And Completed Color Flow 12/02/2012 31755 EKG Tracing & Interpretation Completed 10/20/2012 07510 ECHO Transthoracic, Real-Time 2D With Doppler And Completed Color Flow 03/26/2012 [id number] EKG Tracing & Interpretation Completed 03/25/2012 [id number] EKG Tracing & Interpretation Completed 05/16/2010 [id number] EKG Tracing & Interpretation Completed 10/15/2008 [id number] EKG Tracing & Interpretation Completed Encounters Type Date Location Provider Dx Diagnosis Office Visit 02/04/2018 [facility] Internal Chen Ambrocio, E11.9 Type 2 diabetes 10:00a Igor Salas M.D. 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 Services Of [facility] Haja Kaur Office Visit 07/25/2017 10:10a [facility] Dermatology Martin Ahumada L91.8 Other hypertrophic MD disorders of the skin L98.9 Disorder of the skin and subcutaneous tissue, unspecified D48.5 Neoplasm of uncertain behavior of skin Office Visit 07/10/2017 10:20a [facility] Internal Jenn Mayers, J01.90 Acute sinusitis, Medicine - CAP BLOCKER unspecified [address] R05 Cough Office Visit 06/13/2017 2:40p [facility] Internal Chen Z00.00 Encntr for Igor - Haja Ambrocio general adult [place] medical exam w/o abnormal findings E11.9 Type 2 diabetes mellitus without complications R42 Dizziness and giddiness L98.9 Disorder of the skin and subcutaneous tissue, unspecified Z23 Encounter for immunization Office Visit 05/16/2017 [facility] Internal Chen E78.2 Mixed hyperlipidemia 2:20p Igor Ambrocio M.D. 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 I71.2 Thoracic aortic aneurysm, without rupture I10 Essential (primary) hypertension R00.2 Palpitations E78.2 Mixed hyperlipidemia Office Visit 11/01/2016 Orthopedic Emir Robb, Q66.7 Congenital pes 10:00a Services Of Haja hsieh C.MErikaAErika Office Visit 11/01/2016 Surgical Kalpesh Guerrero, K40.90 Unil inguinal 1:00p Associates Of , ANGELA hernia, w/o obst Shuttle Hand or gangr, not spcf as recur Office Visit 10/31/2016 [facility] Internal Salomón Flowers NP R22.9 Localized 9:20a Medicine - swelling, mass and [place] lump, unspecified Office Visit 10/09/2016 [facility] Internal Chen I10 Essential 2:00p Igor Ambrocio M.D. 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 adult medical exam [place] w/o abnormal findings R73.01 Impaired fasting glucose F41.9 Anxiety disorder, unspecified N40.1 Enlarged prostate with lower urinary tract symptoms Office Visit 10/13/2015 1:45p [facility] Nisreen Rayo, I35.0 Nonrheumatic Of Gen Smyth aortic (valve) stenosis E78.2 Mixed hyperlipidemia I10 Essential (primary) hypertension Z68.30 Body mass index (BMI) 30.0-30.9, adult Office Visit 08/23/2015 11:40a [facility] Internal Chen I10 Essential ( primary) Igor Ambrocio M.D. hypertension [place] R07.9 Chest pain, unspecified Office Visit 08/18/2015 11:24a [facility] Tram R07.9 Chest pain, Assoc,shi Boyd M.D. unspecified Hospitalists I10 Essential (primary) hypertension E78.5 Hyperlipidemia, unspecified I25.10 Athscl heart disease of [place] coronary artery w/o ang pctrs Office Visit 08/17/2015 2:20p [facility] Internal Yaneli Meléndez, R07.9 Chest pain, Medicine - N.P. unspecified [place] I10 Essential (primary) hypertension Office Visit 08/17/2015 [facility] Jamie R07.9 Chest pain, 11:23a Assoc,shi Stanley N.PErika unspecified Hospitalists I10 Essential (primary) hypertension E78.5 Hyperlipidemia, unspecified I25.10 Athscl heart disease of [place] coronary artery w/o ang pctrs Office Visit 06/29/2015 [facility] Internal Yaneli Meléndez, H10.9 Unspecified 1:20p Medicine - N.P. conjunctivitis [place] Office Visit 06/24/2015 [facility] Internal Yaneli Meléndez, J06.9 Acute upper 10:20a Medicine - N.P. respiratory [place] infection, unspecified Office Visit 10/18/2014 ARUNA Singh 424.1 Aortic Valve 3:00p Cardiology Of Disorder [facility] 401.9 Hypertension Unspec 424.0 Mitral Valve Disorder Office Visit 09/20/2014 1:40p [facility] Internal Chen V70.0 Examination Medicine Maritza Ambrocio M.D. General Medical [place] Routine AT Health Care Facility 787.91 Diarrhea 401.9 Hypertension Unspec v03.82 Streptococcus Pneumoniae Vaccination Spec Other Office Visit 09/06/2014 10:45a [facility] Nisreen Rayo, 424.1 Aortic Valve Of Shuttle Hand M.D. Disorder 401.9 Hypertension Unspec 427.89 Cardiac Dysrhythmia Other 794.31 Electrocardiogram (ECG) (EKG) Abnormal Office Visit 09/02/2014 3:30p [facility] Internal Salomón Lionel, 680.9 Carbuncle & Medicine - DIRECTOR OF HOTEL OPERATIONS Furuncle Unspec [place] Site Office Visit 08/24/2014 1:00p [facility] Internal Salomón Lionel, 787.91 Diarrhea Medicine - DIRECTOR OF HOTEL OPERATIONS [place] 680.9 Carbuncle & Furuncle Unspec Site Office Visit 08/06/2014 2:00p [facility] Internal Salomón Lionel, 558.9 Gastroenteritis & Medicine - DIRECTOR OF HOTEL OPERATIONS Colitis Noninfectious [place] Other 427.89 Cardiac Dysrhythmia Other 518.89 Lung Disease Other Not Elsewhere Class Office Visit 08/03/2014 [facility] 558.9 Gastroenteritis & 1:12p Assshi posadas M.D. Colitis Hospitalists Noninfectious Other 578.9 Hemorrhage Gastrointestinal Tract Unspec 272.4 Hyperlipidemia Other Unspec 401.9 Hypertension Unspec [facility] Hem[facility]age 1:11p Assocshi M.D. Gastrointestinal Hospitalists Tract Unspec 558.9 Gastroenteritis & Colitis Noninfectious Other 272.4 Hyperlipidemia Other Unspec 401.9 Hypertension Unspec Office Visit 08/01/2014 [facility] Jamie 558.9 Gastroenteritis & 1:11p Assocshi N.P. Colitis Hospitalists Noninfectious Other 578.9 Hemorrhage Gastrointestinal Tract Unspec 401.9 Hypertension Unspec 272.4 Hyperlipidemia Other Unspec Office Visit 02/15/2014 3:20p [facility] Internal Chen 386.11 Vertigo Benign Igor Ambrocio M.D. Paroxysmal [place] Position 272.2 Hyperlipidemia Mixed Office Visit 11/23/2013 3:00p [facility] Internal Yaneli Meléndez, 686.8 Local Infection Medicine - N.P. Skin & [place] Subcutaneous Tissue Other Spec Office Visit 09/22/2013 9:45a [facility] Nisreen Rayo, 424.1 Aortic Valve Of Gen Smyth Disorder 401.1 Hypertension Benign 786.2 Cough Office Visit 07/20/2013 1:20p [facility] Internal Chen 401.1 Hypertension Igor Ambrocio M.D. Benign [place] 272.2 Hyperlipidemia Mixed 530.81 Esophageal Reflux V76.51 Special Screening For Malignant Neoplasms Colon Office Visit 05/18/2013 1:40p [facility] Internal Chen V70.0 Examination Igor Ambrocio M.D. [facility] Routine AT Health Care Facility 790.21 Impaired Fasting Glucose 272.2 Hyperlipidemia Mixed 401.1 Hypertension Benign V76.51 Special Screening For Malignant Neoplasms Colon V73.99 Screening Examination Viral Disease Unspec V04.81 Need For Prophylactic Vaccination & Inoculation/Influenza Office Visit 12/02/2012 3:00p [facility] Nisreen Rayo, 424.1 Aortic Valve Of [facility] Haja Disorder 424.0 Mitral Valve Disorder 401.9 Hypertension Unspec 272.0 Hypercholesterolemia Pure Office Visit 08/01/2012 2:40p [facility] Internal Chen 401.1 Hypertension Igor Ambrocio M.D. [facility] 272.2 Hyperlipidemia Mixed 790.21 Impaired Fasting Glucose 530.81 Esophageal Reflux Office Visit 07/10/2012 9:40a [facility] Internal Yaneli Meléndez, 724.5 Backache Unspec Medicine - N.P. [place] Office Visit 04/25/2012 2:40p [facility] Internal Chen 401.1 Hypertension Igor Ambrocio M.D. [facility] 465.9 URI Upper Respiratory Infections Acute Unspec Sites 698.9 Pruritic Disorder Unspec Office Visit 04/14/2012 3:40p [facility] Internal Yaneli Meléndez, 465.9 URI Upper Medicine - N.P. Respiratory [place] Infections Acute Unspec Sites Office Visit 03/25/2012 4:00p [facility] Internal Chen 723.1 Cervicalgia Igor Ambrocio M.D. [place] 427.81 Sinoatrial Node Dysfunction v04.81 Need For Prophylactic Vaccination & Inoculation/Influenza 790.21 Impaired Fasting Glucose 401.1 Hypertension Benign Office Visit 06/05/2011 3:40p DO Not Use Shuttle Hand Cecilia Fernandes, 780.60 Fever , Unspecified AT [facility] Kishan.Shailesh Office Visit 05/08/2011 9:40a DO Not Use Yaneli Meléndez, 461.9 Sinusitis Acute Shuttle Hand-[place] N.P. Unspec Office Visit 03/06/2011 3:40p DO Not Use Yaneli Meléndez, V04.81 Need For Shuttle Hand-[place] N.P. Prophylactic Vaccination & Inoculation/Influe nza 919.4 Injury Superficial Insect Bite Oth Mult Unsp Nonv W/O Infect Office Visit 12/26/2010 9:15a Orthopedic Michelet Quick, 726.10 Bursae & Tendon Services Of [facility] C.M.A. Shoulder Region Unspec Office Visit 11/09/2010 1:00p DO Not Use Chen 723.1 Cervicalgia Skyler Ambrocio M.D. Office Visit 10/13/2010 9:00a DO Not Use Chen 782.1 Rash & Other Skyler Ambrocio M.D. Nonspec Skin Eruption 790.21 Impaired Fasting Glucose Office Visit 09/01/2010 DO Not Use Chen 424.1 Aortic Valve 1:45p Skyler Ambrocio M.D. Disorder Office Visit 05/01/2010 DO Not Use Chen V70.0 Examination 2:45p Skyler Ambrocio M.D. General Medical Routine AT Health Care Facility 790.21 Impaired Fasting Glucose 272.4 Hyperlipidemia Other Unspec V03.82 Streptococcus Pneumoniae Vaccination Spec Other Office Visit 08/16/2009 DO Not Use Jerritra Beth, 780.2 Syncope & Collapse 3:15p Skyler Smyth, FACP Office Visit 07/15/2009 DO Not Use [place], 272.4 Hyperlipidemia Other 2:15p Skyler Rutledge M.D. Unspec 790.21 Impaired Fasting Glucose V04.81 Need For Prophylactic Vaccination & Inoculation/Influenza Office Visit 04/19/2009 DO Not Use Yaneli Varn, 461.9 Sinusitis Acute 2:30p Gen-Ugo N.P. Unspec Office Visit 10/15/2008 DO Not Use [place], V70.0 Examination 1:15p Skyler Rutledge M.D. General Medical Routine AT Health Care Facility 272.4 Hyperlipidemia Other Unspec 790.21 Impaired Fasting Glucose V05.8 Single Disease Spec Other Vaccination & Inoculation Office 08/09/2008 DO Not Use Yaneli 466.0 Bronchitis Acute Visit 10:30a Skyler Varn, N.P. Office 12/30/2006 DO Not Use [place], 272.0 Hypercholesterolemia Visit 3:00p Skyler Rutledge M.D. Pure 272.4 Hyperlipidemia Other Unspec 790.21 Impaired Fasting Glucose Office Visit 08/08/2006 DO Not Use [place] 272.4 Hyperlipidemia 1:45p Skyler Rutledge M.D. Other Unspec 790.21 Impaired Fasting Glucose 277.7 Dysmetabolic Syndrome X 719.46 Pain Joint Lower Leg V70.0 Examination General Medical Routine AT Health Care Facility V06.1 Aghoxuxxqc-Lstzaon-Qzbigeoy Combined (DTaP) Office Visit 06/18/2006 DO Not Use [place], 560.9 Intestinal 1:00p Skyler Rutledge M.D. Obstruction Unspec Office Visit 12/24/2005 DO Not Use [place], 692.6 Dermatitis 4:00p Skyler Rutledge M.D. Contact Due To Plants (Except Food) 277.7 Dysmetabolic Syndrome X 272.4 Hyperlipidemia Other Unspec Plan of Treatment Future Appointment(s):07/11/2018 11:00 am - Chen Ambrocio M.D. at [facility] Internal Medicine [place]05/14/2018 - Yaneli Meléndez N.KirbyM54.2 CervicalgiaNew Medication:Cyclobenzaprine HCL 5 mg - 1 by mouth at bedtime as needed for back painNew Therapy:Physical TherapyComments:For your neck pain: I sent in a prescription for a muscle relaxant. I would suggest taking this at bedtime. You may take 1 tablet 3 times daily. I have referred you for physical therapy. I would adviseyou apply ice or heat for 20 minutes, 2 - 3 times daily. Ibuprofen 600 mg every 6 hours, with a little food, will be helpful for the pain and inflammation.
[2018-05-17 14:42] VITALS: BP 119/77
--- NOTE | 2018-05-17 15:39 | UC ---
Neck Pain HPI - HPI Summary HPI Summary: 72-year-old male comes in with a chief complaint of left neck left shoulder left arm pain. He's been having some back pain issues for a fairly long period of time. Physical therapy. Little more than a week ago he started with pain to the left of the upper thoracic and cervical spine into the left posterior shoulder area. He was started on ibuprofen and Flexeril by his primary care doctor. The pain is getting worse overall. The medications did help initially. This morning when he woke up the pain was worse it's going down his left arm now. Just prior to arrival he noticed some tingling in the tips of his fingers on the left hand. That occurred briefly 5-10 minutes. Denies any stroke symptoms of vision changes difficulty with speech or weakness in the face of the arm or the leg. Denies any anterior chest pain. He has had an aortic valve replacement. When asked the patient reports he's not concerned about a stroke or heart attack. - History of Current Complaint Chief Complaint: UCUpperExtremity Stated Complaint: NECK/SHOULDER PAIN TINGLING TO FINGERS Time Seen by Provider: 05/17/18 15:00 Pain Intensity: 7 - Allergies/Home Medications Allergies/Adverse Reactions: Allergies Allergy/AdvReac Type Severity Reaction Status Date / Time niacin Allergy Itching Verified 05/17/18 14:42 [From Niaspan Extended-Release] Home Medications: Home Medications Calcium Carbonate [Calcium/C/D] 500 chw PO BID 05/17/18 [History Confirmed 05/17] Cyclobenzaprine TAB* [Flexeril 10 MG TAB*] 1 tab PO BID PRN 05/17/18 [History Confirmed 05/17/18] Ibuprofen [Advil] 600 mg PO ONCE PRN 05/17/18 [History Confirmed 05/17/18] Vit C/E/Zn/Coppr/Lutein/Zeaxan [Preservision Areds 2 Softgel] 1 tab PO BID 05/17 [History Confirmed 05/17/18] PMH/Surg Hx/FS Hx/Imm Hx Cardiovascular History: Cardiac Disease - Surgical History Surgical History: Yes Surgery Procedure, Year, and Place: valve replacement, aortic root graft 2010 - Family History Known Family History: Positive: None - reviewed & noncontributory, Cardiac Disease, Other - father - [place], mother - cancer - Social History Alcohol Use: Occasionally Alcohol Amount: states 2 drinks a week Substance Use Type: None Smoking Status (MU): Never Smoked Tobacco - Immunization History Most Recent Influenza Vaccination: 2016 Most Recent Tetanus Shot: unknown Most Recent Pneumonia Vaccination: does not know if he had it or not Review Of Systems Constitutional: Positive: Negative Skin: Positive: Negative Eyes: Positive: Negative ENT: Positive: Negative Respiratory: Positive: Negative Cardiovascular: Positive: Negative Gastrointestinal: Positive: Negative Musculoskeletal: Positive: Other: - SEE HPI Neurological: Positive: Numbness - SEE HPI Psychological: Positive: Negative All Other Systems Reviewed And Are Negative: Yes Physical Exam Triage Information Reviewed: Yes Appearance: Well-Appearing, No Pain Distress, Well-Nourished Vital Signs: Initial Vital Signs Temp 97.6 F 05/17/18 14:35 Pulse 65 05/17/18 14:35 Resp 18 05/17/18 14:35 BP 119/77 05/17/18 14:35 Pulse Ox 98 05/17/18 14:35 Vital Signs Reviewed: Yes Eye Exam: Normal Eyes: Positive: Conjunctiva Clear Neck: Positive: Supple, Other: - Patient is tender to palpation to the left of the lower neck and upper thoracic spine. he is tender along the trapezius muscle into the scapular area. No anterior tenderness. Respiratory Exam: Normal Respiratory: Positive: Lungs clear, Normal breath sounds, No respiratory distress Cardiovascular: Positive: RRR Musculoskeletal: Positive: Other: - Normal bilateral radial pulses. In the upper extremities normal capillary refill. No sensation deficits. Fingers wrists elbows shoulders have full strength. Full range of motion for the fingers wrist elbows. With shoulder range of motion flexion and extension is 170 for right and left. Internal rotation is T6 on the right and T12 on the left. Neurological Exam: Normal Neurological: Positive: Alert, Muscle Tone Normal Psychological Exam: Normal Psychological: Positive: Age Appropriate Behavior Skin Exam: Normal Neck Pain Course/Dx - Course Course Of Treatment: Order Information: SP CERVICAL 4+VWS. Accession Number: [id number]. CPT: 66997. INDICATION: Acute neck pain with radiation down the left arm x1 week. COMPARISON: None. TECHNIQUE: 5 views of the cervical spine were obtained. FINDINGS: Degenerative changes of the cervical spine include loss of intervertebral disc. height most severely at C5/C6 where there is obliteration of the intervertebral disc space. and marginal osteophyte formation. There is a mild degree of nonspecific straightening of. the normal cervical lordosis. The vertebral bodies and facet joints are otherwise. appropriately aligned. On the oblique views there is bony proliferation overlying the. neural foramina more severely affecting the left C4-C6 levels. There is no prevertebral. soft tissue swelling. IMPRESSION: Degenerative changes as described above notable for bony proliferation. overlying the lower left cervical neural foramina which could account for the patient's. clinical presentation. If the patient's symptoms persist, follow-up imaging is recommended. . < Electronically signed by Garcia Murillo MD in OV> 05/17/18 [id number]. I discussed the x-rays with the patient. Patient has no neurologic deficit at this time. The plan is to continue with ibuprofen 600 mg every 6 hours and increase the dose of the Flexeril to a maximum of 10 mg by mouth every 8 hours when necessary. Follow-up primary care doctor. We discussed if there is any weakness or numbness he needs to get reevaluated right away. - Differential Dx/Diagnosis Provider Diagnosis: Cervical radiculopathy, Neck pain Discharge - Sign-Out/Discharge Documenting (check all that apply): Patient Departure All imaging exams completed and their final reports reviewed: Yes - Discharge Plan Condition: Stable Disposition: HOME Prescriptions: Cyclobenzaprine TAB* [Flexeril 10 MG TAB*] 10 mg PO TID PRN #15 tab MDD 3 PRN Reason: Pain Patient Education Materials: Cervical Radiculopathy (ED) Referrals: Chen Ambrocio MD [Primary Care Provider] - Additional Instructions: FOLLOW UP WITH YOUR DOCTOR. YOU CAN TAKE CYCLOBENZAPRINE (FLEXERL) 10MG EVERY 8 HOURS NEEDED. YOU CAN TAKE IBUPROFEN 600MG EVERY 6 HOURS NEEDED. GET RECHECKED FOR ANY WORSENING OF YOUR CONDITION; PAIN, WEAKNESS, NUMBNESS OR QUESTIONS OR CONCERNS. - Billing Disposition and Condition Condition: STABLE Disposition: Home
== END 2018-05-17 16:10 | disposition home or self-care (01) ==
LOC: UCEAST 14:25
DX: M54.12 Radiculopathy, cervical region (principal); Z95.2 Presence of prosthetic heart valve
CPT/HCPCS: 72050; 99212; G0463